=== PATIENT | male | born 1955 | race Caucasian/White ===

== ENCOUNTER → 2024-01-28 07:23 | Outpatient (REF) | payer MEDICARE, OTHER, SELFPAY ==
[2024-01-28 08:26] LABS: % Basophils 0.9 % (0-2); % Eosinophils 2.1 % (0-6); % Immature Granulocytes 0.3 % (0-0.5); % Monocytes 8.4 % (1.7-9.3); % Neutrophils 60.3 % (42.2-75.2); Absolute Basophils 0.1 10^3/uL (0-0.2); Absolute Eosinophils 0.1 10^3/uL (0-0.7); Absolute Lymphocytes 1.6 10^3/uL (1.2-3.4); Absolute Monocytes 0.5 10^3/uL (0.1-0.6); Absolute Neutrophils 3.5 10^3/uL (1.4-6.5); Hematocrit 38.7 % (39.0-52.0); Hemoglobin 12.9 g/dL (13.0-18.0); Mean Corp Hgb Conc. 33.3 g/dL (33.0-37.0); Mean Corpuscular Hgb 29.8 pg (27.0-31.0); Mean Corpuscular Volume 89.4 fL (80.0-94.0); Mean Platelet Volume 10.5 fL (7.4-10.4); Nucleated Red Blood Cells % 0 % (-); Platelet Count 273 10^3/uL (130-400); Red Blood Cell Count 4.33 10^6/uL (4.70-6.10); Red Cell Dist. Width 14.2 % (11.5-14.5); White Blood Cell Count 5.7 10^3/uL (4.8-10.8)
[2024-01-28 08:55] LABS: Urine Protein < 5 mg/dl
[2024-01-28 08:58] LABS: Microalbumin, Random Urine < 0.6 mg/dl (0.6-1.7)
[2024-01-28 09:12] LABS: ALT (SGPT) 23 U/L (0-50); AST (SGOT) 25 U/L (17-59); Albumin 4.3 g/dl (3.5-5.0); Alkaline Phosphatase 52 U/L (38-126); Blood Urea Nitrogen 26 mg/dl (9-20); Calcium 9.5 mg/dl (8.4-10.2); Carbon Dioxide 29 mmol/L (22-30); Chloride 105 mmol/L (98-107); Glucose 97 mg/dl (70-99); HDL Cholesterol 66 mg/dl; Intact PTH 77.5 pg/ml (13.6-85.8); LDL Cholesterol, Calculated 151 mg/dl; Phosphorus 3.6 mg/dl (2.5-4.5); Potassium 5.1 mmol/L (3.5-5.1); Sodium 141 mmol/L (135-145); Total Bilirubin 0.6 mg/dl (0.2-1.3); Total Cholesterol 249 mg/dl (50-199); Total Protein 6.9 g/dl (6.3-8.2); Triglyceride 163 mg/dl (10-149); Very Low Density Lipoprotein 32 mg/dl (0-30); eGFR 54.75
[2024-01-28 09:36] LABS: TSH Reflex To Free T4 3.65 uIU/ml (0.47-4.68)
== END ==
LOC: REG 07:23
PROVIDERS: ATTENDING PHYSICIAN Specialist; FAMILY PHYSICIAN Family Medicine
DX: N18.31 Chronic kidney disease, stage 3a (principal); Z00.00 Encounter for general adult medical examination without abnormal findings; Z79.899 Other long term (current) drug therapy; E78.5 Hyperlipidemia, unspecified
CPT/HCPCS: 36415; 80053; 80061; 80069; 82043; 82570; 83970; 84156; 84443; 85025

== ENCOUNTER → 2024-02-28 11:25 | Outpatient (REF) | payer MEDICARE, OTHER, SELFPAY | LOC: PAVMRI 11:25 | PROVIDERS: ATTENDING PHYSICIAN Family Medicine | DX: R20.2 Paresthesia of skin (principal); G60.8 Other hereditary and idiopathic neuropathies; G89.29 Other chronic pain; R51.9 Headache, unspecified | CPT/HCPCS: 70551; 72148 ==

== ENCOUNTER → 2024-03-13 13:29 | Outpatient (REF) | payer MEDICARE, OTHER, SELFPAY ==
[2024-03-13 14:20] LABS: Erythrocyte Sed Rate 18 mm/hour (0-20)
[2024-03-13 14:46] LABS: C-Reactive Protein < 5.00 mg/L (0.0-10.00)
[2024-03-13 15:51] LABS: Folate > 20.0 ng/ml (2.76-20); Vitamin B12 446 pg/ml (239-931)
[2024-03-14 09:09] LABS: Glycohemoglobin (HgbA1c) 5.7 % (4.0-5.6)
[2024-03-15 10:33] LABS: Lyme Antibody Screen, EIA Negative (Negative)
== END ==
LOC: REG 13:29
PROVIDERS: ATTENDING PHYSICIAN Family Medicine
DX: R20.2 Paresthesia of skin (principal); G60.8 Other hereditary and idiopathic neuropathies; Z13.1 Encounter for screening for diabetes mellitus; M25.50 Pain in unspecified joint; Z79.899 Other long term (current) drug therapy
CPT/HCPCS: 36415; 82607; 82746; 83036; 85652; 86140; 86618

== ENCOUNTER → 2024-04-03 15:23 | Outpatient (REF) | payer MEDICARE, OTHER, SELFPAY | LOC: HWRAD 15:23 | PROVIDERS: ATTENDING PHYSICIAN Otolaryngology; FAMILY PHYSICIAN Family Medicine | DX: J32.0 Chronic maxillary sinusitis (principal) | CPT/HCPCS: 70486 ==

== ENCOUNTER 2024-06-28 13:00 | Inpatient (IN) | payer MEDICARE, OTHER, SELFPAY ==
[2024-06-28] VITALS (90 sets, daily range): BP systolic 74–171; BP diastolic 37–103; BMI 28.1
[2024-06-28 08:30] LABS: % Basophils 0.4 % (0-2); % Eosinophils 0.5 % (0-6); % Immature Granulocytes 0.4 % (0-0.5); % Lymphocytes 9.9 % (20.5-51.1); % Monocytes 8.5 % (1.7-9.3); % Neutrophils 80.3 % (42.2-75.2); Absolute Eosinophils 0.1 10^3/uL (0-0.7); Absolute Lymphocytes 1.1 10^3/uL (1.2-3.4); Absolute Monocytes 0.9 10^3/uL (0.1-0.6); Absolute Neutrophils 8.5 10^3/uL (1.4-6.5); Hematocrit 37.4 % (39.0-52.0); Mean Corp Hgb Conc. 34.8 g/dL (33.0-37.0); Mean Corpuscular Hgb 29.9 pg (27.0-31.0); Mean Platelet Volume 10.4 fL (7.4-10.4); Nucleated Red Blood Cells % 0 % (-); Platelet Count 266 10^3/uL (130-400); Red Blood Cell Count 4.35 10^6/uL (4.70-6.10); Red Cell Dist. Width 14.1 % (11.5-14.5); White Blood Cell Count 10.6 10^3/uL (4.8-10.8)
[2024-06-28 08:44] LABS: ALT (SGPT) 18 U/L (0-50); AST (SGOT) 23 U/L (17-59); Albumin 4.5 g/dl (3.5-5.0); Alkaline Phosphatase 54 U/L (38-126); Blood Urea Nitrogen 24 mg/dl (9-20); Calcium 10.4 mg/dl (8.4-10.2); Carbon Dioxide 24 mmol/L (22-30); Chloride 104 mmol/L (98-107); Estimated Creatinine Clearance 53 ml/min; Glucose 145 mg/dl (70-99); Lipase 60 U/L (23-300); Potassium 4.3 mmol/L (3.5-5.1); Sodium 136 mmol/L (135-145); Total Bilirubin 0.8 mg/dl (0.2-1.3); eGFR 54.75
--- NOTE | 2024-06-28 08:46 | ED.GENMED ---
History of Present Illness
<Kay Taylor PA-C - Last Filed: 06/28/24 15:39>
General
Chief Complaint: Chest Pain
Source: patient
Exam Limitations: none
Time Seen by Provider: 06/28/24 07:48
Nursing documentation reviewed up to this point in time: agreed with
History of Present Illness
History of Present Illness:
pt is a 68 y/o M h/o HT, HLD, cardiac cath in 2020, clean
followed by dr[facility]
here with 1.5 days of neck/chest discomfort
pt says it started with him feeling dizzy c/w his previous vertigo 2 nights ago
he took a dose of meclizine which resolved it
later on he started feeling some discomfort in the front of his neck with breathing that felt strange. not a sore throat, no voice change, no pain with neck movement, no exertional symptoms but it was waxing and waning, this started around 9 pm
he was able to fall asleep, but had some symptoms at night
woke up yesterday am feeling much better
but some time throughout the day noticed the same discomfort in his upper chest with breathin and still with the neck discomfort
it was more waxing and waning as well
around 2 am he woke up to use the bathroom and felt better but at 5 am he woke up feeling worse
no nausea, vomiting, diarphoresiss, fever, chills, cough, abdominal pain, neck swelling, dizziness, vision changes, headache
takes baby asa, took one yesterday not today
Past History
<Kay Taylor PA-C - Last Filed: 06/28/24 15:39>
Past History
ED Past Medical History: HTN and Hypercholesterolemia; Negative CAD
Social History
Tobacco: Non-smoker
Alcohol: None
Drug: None
Personal:
Review of Systems
<Kay Taylor PA-C - Last Filed: 06/28/24 15:39>
Review of Systems
Allergies reviewed?: Yes
All Other Systems: Not applicable
Phy Exam
<Kay Taylor PA-C - Last Filed: 06/28/24 15:39>
Physical Exam
Physical Exam:
GENERAL: Alert , in no apparent distress, seems to be more discomfort with some movement, leaning forward, deep breathing but is not otherwise uncomfortable
EYE: pupils equal and reactive
NECK: Supple no bruits, no crepitus, well appearing, normal voice, normal swallowing
ENT: o/p clr, mmm.
CARDIAC: Regular rate and rhythm .no murmur appreciated
No chest wall tenderness
LUNGS: Clear breath sounds bilaterally, no acute respiratory distress, no wheezes/rales/rhonchi
ABDOMEN: Soft, without focal tenderness, no r/g, no cvat, normal bowel sounds
NEUROLOGICAL: Alert and oriented, no focal neuro deficits
SKIN: Warm and dry, skin intact.
MUSCULOSKELETAL: No edema, well perfused. neg aurora's sign
PSYCH: Normal and appropriate interaction.
Scores
<Kay Taylor PA-C - Last Filed: 06/28/24 15:39>
Heart Score for Chest Pain Patients
STEMI patient?: No
History: Highly Suspicious
ECG: Nonspecific Repolarization
Age: >/= 65 years
Risk Factors: 1 or 2 Risk Factors
Troponin: </= Normal Limit
Heart Score for Chest Pain Patients: 6
Heart Score Risk: 20.3% MACE over next 6 weeks
Course
<Kay Taylor PA-C - Last Filed: 06/28/24 15:39>
Orders/Labs/Results
Orders:
Orders
06/28/24 Breakfast
Cholesterol Lowering
At Your Request: Full Participation
Cholesterol Lowering: Sodium, 2 Gram
06/28/24 07:39
Electrocardiogram (*1) Urgent
Reason for Study: Chest Pain
EKG- Treatment ONCE
06/28/24 08:17
CMP [Comprehensive Metabolic Panel] Urgent
Complete Blood Count/With Diff Urgent
Erythrocyte Sed Rate Urgent
Comment: ADD ON
Lipase Urgent
TSH Reflex To Free T4 Urgent
Comment: ADD ON
Troponin I Urgent
06/28/24 08:20
CT Chest Pe Study Urgent
Comment: ALSO neck pain with breathing
Reason For Exam: tachy, chest pain, ekg changes, pleuritic
06/28/24 08:21
CR Chest Portable - 1 View Urgent
Comment:
Reason For Exam: chest pain, sob
Reason Study Needs to be Portable: Patient Unstable
06/28/24 08:22
Add On- LAB Urgent
Tests Added?: esr
06/28/24 09:37
Add On- LAB Urgent
Tests Added?: tsh,reflex t4
06/28/24 09:44
Acetaminophen [Tylenol] 650 mg PO NOW STA
06/28/24 10:00
Esmolol 2500 mg/250 ml [Brevibloc 2500 mg] 2,500 mg in 250 ml IV PER PROTOCOL
Initial dose in mcg/kg/min, then titrate:: 50
Titrate to keep:: HR 50 - 60 bpm
Titrate by mcg/kg/min:: 25-50 mcg/kg/min
Frequency of titrations (minutes):: 5
Maximum dose in mcg/kg/min:: 300
Begin to taper infusion when:: Remained at goal for 4hrs
Taper by mcg/kg/min:: 25-50 mcg/kg/min
Frequency of taper (minutes) if patient maintains goal:: 30
Taper to off?: Yes
If infusion off & no longer maintaining goal:: Contact Provider
06/28/24 10:06
Morphine Sulfate 2 mg IV NOW STA
06/28/24 10:25
Type+Screen Urgent
06/28/24 10:27
CT Chest/abd/pelvis Angio W/wo Stat
Comment:
Reason For Exam: cta aortic gated chest/abd/pelvis; identify dissec
06/28/24 10:28
0.9% Sodium Chloride 1000 ml [Nss] 1,000 ml IV BOLUS
06/28/24 10:29
Esmolol [Brevibloc] 45 mg Syringe [Syringe Non-Pump] 0 ml IV NOW
06/28/24 10:32
Esmolol [Brevibloc] 45 mg Syringe [Syringe Non-Pump] 0 ml IV NOW
06/28/24 11:00
Esmolol 2500 mg/250 ml [Brevibloc 2500 mg] 2,500 mg in 250 ml IV PER PROTOCOL
06/28/24 11:14
HYDROmorphone [Dilaudid] 0.5 mg IV NOW STA
06/28/24 11:28
Echo 2D MMode Color/Doppler Urgent
Reason for Study: chest pain, aortic abnormality (possible dissection, ulcer)
06/28/24 12:32
Admit/Transfer Patient As Directed
Co-Sign Provider:
Level of Care: Inpatient admission
Assign to:: ICU
Physician / Group: orestes
Diagnosis: chest pain
Reason for Hospitalization: chest pain
Expected length of stay greater than two midnights?: Yes
ELOS- Estimated Length of Stay in days: 3
I certify the patient meets the requirements for IP care: Yes
PRN Pain Medication Management As Directed
May give lesser potent ordered pain med per pt: Yes
preference::
Protocol:: Medication orders for pain may be administered in a
manner that supports deferring to patient preference
when the pt is:
- Requesting an ordered lesser potent pain medication.
Least to most potent pain medications are defined
as: acetaminophen < NSAID < tramadol < opioids
(morphine, oxycodone, hydromorphone).
- Requesting a lesser dose of the same medication IF
ORDERED.
- Requesting a less intrusive route of administration
if both routes are prescribed by the provider (PO <
IV).
06/28/24 12:34
Code Status As Directed
Resuscitation Status: Full Code
06/28/24 14:00
EKG [Electrocardiogram (*1)] Routine
Reason for Study: Abnormal EKG
06/28/24 14:13
Troponin I Q6H
06/28/24 14:37
Acetaminophen [Tylenol] 650 mg PO Q4HPRN PRN
Bisacodyl [Dulcolax] 10 mg RECTAL [id number] PRN
Docusate W/Senna [Senokot-S] 1 tablet PO BIDPRN PRN
Polyethylene Glycol Powder [Miralax] 17 grams PO DAILYPRN PRN
06/28/24 14:37
Activity As Directed
Activity Level: As Tolerated
Pneumatic Compression Sleeves As Directed
Type: Knee high
Vital Signs As Directed
Frequency: Per unit guidelines
DX Deep Vein Thrombosis Video Routine
06/28/24 20:00
EKG [Electrocardiogram (*1)] Routine
Reason for Study: Abnormal EKG
Troponin I Q6H
06/29/24 06:00
Basic Metabolic Panel IN AM
Cardiovascular Evaluation IN AM
Complete Blood Count/No Diff IN AM
06/29/24 08:00
Aspirin Low Dose EC [Aspir Low (Enteric Coated)] 81 mg PO DAILY
06/30/24 06:00
Basic Metabolic Panel IN AM
Complete Blood Count/No Diff IN AM
07/01/24 06:00
Basic Metabolic Panel IN AM
Complete Blood Count/No Diff IN AM
07/02/24 06:00
Basic Metabolic Panel IN AM
Complete Blood Count/No Diff IN AM
07/03/24 06:00
Basic Metabolic Panel IN AM
Complete Blood Count/No Diff IN AM
Abnormal Lab Results
06/28/24
08:17
RBC 4.35 L 10^6/uL
(4.70-6.10)
Hct 37.4 L %
(39.0-52.0)
Absolute Neuts (auto) 8.5 H 10^3/uL
(1.4-6.5)
Absolute Lymphs (auto) 1.1 L 10^3/uL
(1.2-3.4)
Absolute Monos (auto) 0.9 H 10^3/uL
(0.1-0.6)
Neutrophils % 80.3 H %
(42.2-75.2)
Lymphocytes % 9.9 L %
(20.5-51.1)
ESR 22 H mm/hour
(0-20)
BUN 24 H mg/dl
(9-20)
Creatinine 1.4 H mg/dL
(0.7-1.3)
Glucose 145 H mg/dl
(70-99)
Calcium 10.4 H mg/dl
(8.4-10.2)
06/28/24 08:17
06/28/24 08:17
Vital Signs
Initial and Last Documented VS:
Initial Vital Signs
Temp Pulse Resp BP Pulse Ox
98.7 F 109 18 170/98 99
06/28/24 07:45 06/28/24 07:45 06/28/24 07:45 06/28/24 07:45 06/28/24 07:45
Last Documented Vital Signs
Temp Pulse Resp BP Pulse Ox
99.3 F 82 21 139/81 96
06/28/24 15:13 06/28/24 15:00 06/28/24 15:00 06/28/24 15:00 06/28/24 15:00
<Toni Case MD - Last Filed: 06/28/24 10:37>
Orders/Labs/Results
Orders:
Orders
06/28/24 Breakfast
Cholesterol Lowering
At Your Request: Full Participation
Cholesterol Lowering: Sodium, 2 Gram
06/28/24 07:39
Electrocardiogram (*1) Urgent
Reason for Study: Chest Pain
EKG- Treatment ONCE
06/28/24 08:17
CMP [Comprehensive Metabolic Panel] Urgent
Complete Blood Count/With Diff Urgent
Erythrocyte Sed Rate Urgent
Comment: ADD ON
Lipase Urgent
TSH Reflex To Free T4 Urgent
Comment: ADD ON
Troponin I Urgent
06/28/24 08:20
CT Chest Pe Study Urgent
Comment: ALSO neck pain with breathing
Reason For Exam: tachy, chest pain, ekg changes, pleuritic
06/28/24 08:21
CR Chest Portable - 1 View Urgent
Comment:
Reason For Exam: chest pain, sob
Reason Study Needs to be Portable: Patient Unstable
06/28/24 08:22
Add On- LAB Urgent
Tests Added?: esr
06/28/24 09:37
Add On- LAB Urgent
Tests Added?: tsh,reflex t4
06/28/24 09:44
Acetaminophen [Tylenol] 650 mg PO NOW STA
06/28/24 10:00
Esmolol 2500 mg/250 ml [Brevibloc 2500 mg] 2,500 mg in 250 ml IV PER PROTOCOL
Initial dose in mcg/kg/min, then titrate:: 50
Titrate to keep:: HR 50 - 60 bpm
Titrate by mcg/kg/min:: 25-50 mcg/kg/min
Frequency of titrations (minutes):: 5
Maximum dose in mcg/kg/min:: 300
Begin to taper infusion when:: Remained at goal for 4hrs
Taper by mcg/kg/min:: 25-50 mcg/kg/min
Frequency of taper (minutes) if patient maintains goal:: 30
Taper to off?: Yes
If infusion off & no longer maintaining goal:: Contact Provider
06/28/24 10:06
Morphine Sulfate 2 mg IV NOW STA
06/28/24 10:25
Type+Screen Urgent
06/28/24 10:27
CT Chest/abd/pelvis Angio W/wo Stat
Comment:
Reason For Exam: cta aortic gated chest/abd/pelvis; identify dissec
06/28/24 10:28
0.9% Sodium Chloride 1000 ml [Nss] 1,000 ml IV BOLUS
06/28/24 10:29
Esmolol [Brevibloc] 45 mg Syringe [Syringe Non-Pump] 0 ml IV NOW
06/28/24 10:32
Esmolol [Brevibloc] 45 mg Syringe [Syringe Non-Pump] 0 ml IV NOW
06/28/24 11:00
Esmolol 2500 mg/250 ml [Brevibloc 2500 mg] 2,500 mg in 250 ml IV PER PROTOCOL
06/28/24 11:14
HYDROmorphone [Dilaudid] 0.5 mg IV NOW STA
06/28/24 11:28
Echo 2D MMode Color/Doppler Urgent
Reason for Study: chest pain, aortic abnormality (possible dissection, ulcer)
06/28/24 12:32
Admit/Transfer Patient As Directed
Co-Sign Provider:
Level of Care: Inpatient admission
Assign to:: ICU
Physician / Group: orestes
Diagnosis: chest pain
Reason for Hospitalization: chest pain
Expected length of stay greater than two midnights?: Yes
ELOS- Estimated Length of Stay in days: 3
I certify the patient meets the requirements for IP care: Yes
PRN Pain Medication Management As Directed
May give lesser potent ordered pain med per pt: Yes
preference::
Protocol:: Medication orders for pain may be administered in a
manner that supports deferring to patient preference
when the pt is:
- Requesting an ordered lesser potent pain medication.
Least to most potent pain medications are defined
as: acetaminophen < NSAID < tramadol < opioids
(morphine, oxycodone, hydromorphone).
- Requesting a lesser dose of the same medication IF
ORDERED.
- Requesting a less intrusive route of administration
if both routes are prescribed by the provider (PO <
IV).
06/28/24 12:34
Code Status As Directed
Resuscitation Status: Full Code
06/28/24 14:00
EKG [Electrocardiogram (*1)] Routine
Reason for Study: Abnormal EKG
06/28/24 14:13
Troponin I Q6H
06/28/24 14:37
Acetaminophen [Tylenol] 650 mg PO Q4HPRN PRN
Bisacodyl [Dulcolax] 10 mg RECTAL [id number] PRN
Docusate W/Senna [Senokot-S] 1 tablet PO BIDPRN PRN
Polyethylene Glycol Powder [Miralax] 17 grams PO DAILYPRN PRN
06/28/24 14:37
Activity As Directed
Activity Level: As Tolerated
Pneumatic Compression Sleeves As Directed
Type: Knee high
Vital Signs As Directed
Frequency: Per unit guidelines
DX Deep Vein Thrombosis Video Routine
06/28/24 20:00
EKG [Electrocardiogram (*1)] Routine
Reason for Study: Abnormal EKG
Troponin I Q6H
06/29/24 06:00
Basic Metabolic Panel IN AM
Cardiovascular Evaluation IN AM
Complete Blood Count/No Diff IN AM
06/29/24 08:00
Aspirin Low Dose EC [Aspir Low (Enteric Coated)] 81 mg PO DAILY
06/30/24 06:00
Basic Metabolic Panel IN AM
Complete Blood Count/No Diff IN AM
07/01/24 06:00
Basic Metabolic Panel IN AM
Complete Blood Count/No Diff IN AM
07/02/24 06:00
Basic Metabolic Panel IN AM
Complete Blood Count/No Diff IN AM
07/03/24 06:00
Basic Metabolic Panel IN AM
Complete Blood Count/No Diff IN AM
Abnormal Lab Results
06/28/24
08:17
RBC 4.35 L 10^6/uL
(4.70-6.10)
Hct 37.4 L %
(39.0-52.0)
Absolute Neuts (auto) 8.5 H 10^3/uL
(1.4-6.5)
Absolute Lymphs (auto) 1.1 L 10^3/uL
(1.2-3.4)
Absolute Monos (auto) 0.9 H 10^3/uL
(0.1-0.6)
Neutrophils % 80.3 H %
(42.2-75.2)
Lymphocytes % 9.9 L %
(20.5-51.1)
ESR 22 H mm/hour
(0-20)
BUN 24 H mg/dl
(9-20)
Creatinine 1.4 H mg/dL
(0.7-1.3)
Glucose 145 H mg/dl
(70-99)
Calcium 10.4 H mg/dl
(8.4-10.2)
06/28/24 08:17
06/28/24 08:17
Vital Signs
Initial and Last Documented VS:
Initial Vital Signs
Temp Pulse Resp BP Pulse Ox
98.7 F 109 18 170/98 99
06/28/24 07:45 06/28/24 07:45 06/28/24 07:45 06/28/24 07:45 06/28/24 07:45
Last Documented Vital Signs
Temp Pulse Resp BP Pulse Ox
99.3 F 82 21 139/81 96
06/28/24 15:13 06/28/24 15:00 06/28/24 15:00 06/28/24 15:00 06/28/24 15:00
<Kay Taylor PA-C - Last Filed: 06/28/24 15:39>
MDM/Problems Addressed
Differential Diagnosis Includes:
PE, aortic dissection, aortic aneurysm, pneumonia, perforation of the esophagus, pneumothorax, acs
MDM/Problems Addressed:
68-year-old h/o htn, hld
2 days intermittent neck/ches tpain worse with breathing and changing position
bp elevated on arrival but doesn't look in distress
ekg is slightly abnormal, t wave v2 and minimal st elevation 0.5 mm III
i contacted dr. osorio for old ekg who was able to provide one that looks different
pt seen by ed attending
and we decidedon PE study, given pleuritic nature of pain with tachycardia
pe study shows a focal abnormality aortic arch concerning for ulceration or dissection
we spoke with dr ferreira who recommended a CTA dissection study and esmolol drip for bp management
pt returned from CT with more pain,treated with dilaudid
esmolol drip on, needing to bump up to 300 max
pt in no distress, but slightly anxious
cta shows the same sublte abnormality which apparently is not within the arch but inferior to the subclvaian which is vascular surgery territory
i spoke with dr paiz who will see him, agreed with BP mangement for now
dr. paiz and hanna both reviewed the cts and did not bleieve they saw a dissection
cardiology also consulted and they ordered echo
pt admitted and signed out to hospitalist for further w/u
<Kay Taylor PA-C - Last Filed: 06/28/24 15:39>
*Critical Care Note
Total Time (30-74mins, 75-104mins- exclusive of procedures): Not Applicable (60 min - discussion with multiple specialists, bp management; )
ED Attending Note
<Kay Taylor PA-C - Last Filed: 06/28/24 15:39>
-
Portions of this chart may have been created with voice recognition software.� Occasional wrong word or��sound alike� substitutions may have occurred due to the inherent limitations of voice recognition software.
<Toni Case MD - Last Filed: 06/28/24 10:37>
ED Attending Note
Patient seen and examined by attending physician: Yes
I performed the substantive portion of visit, reviewed & personally made and approve the management plan that is documented in note by myself or JERONIMO.: Yes
ED Attending Note:
60-year-old male presents with about 36 hours of a fullness in his anterior neck and upper chest. Waxes and wanes. Somewhat positional and worse with sitting forward. At times worse with swallowing. No radiation of the back. No searing pain.
Mildly worse with breathing. No history of same.
On exam patient is nontoxic in no distress. Lungs are clear and equal. Heart regular rate and rhythm no murmur. Abdomen soft and nontender. He has no crepitus. Is warm and dry. Perfusing well.
EKG has new inferior changes. However troponin is negative. We have discussed with cardiology who will evaluate. CT chest to evaluate for pulmonary emboli or other vascular emergency.
Immediately after report from rads.... Patient updated on CT findings. CT surgery contacted. Esmolol drip started. They asked for a CT angio of the chest abdomen and pelvis.
Discharge Plan
Departure
Patient Disposition: Admit
Date of Disposition: 06/28/24
Time of Disposition: 11:53
Admit to: IMU
Presentation/result/management discussed w/ accepting MD/DO: Hospitalist
Condition: Fair
Covid-19: Not Applicable
Discharge Problem:
Nonspecific ST-T wave electrocardiographic changes, Chest pain
Interventions
Interventions:
*Risk Screen - Suicide Last Done: 06/28/24 15:15
*General Assessment Last Done: 06/28/24 07:48
*Neglect/Abuse Screening Last Done: 06/28/24 07:48
ED- Fall Risk Assessment Last Done: 06/28/24 08:09
*Nursing Disposition Last Done: 06/28/24 14:43
ED- Cardiac Assessment Last Done: 06/28/24 08:09
Discharge Date and Time
Discharge Date/Time: 06/28/24 14:30
[2024-06-28 08:55] LABS: Troponin I < 0.012 ng/ml
[2024-06-28] MEDS: MORPHINE SULFATE 2 MG IV (10:11)
[2024-06-28] MEDS: BREVIBLOC 2500 MG 250 IV ×3 (10:12→16:25)
[2024-06-28 10:20] LABS: Erythrocyte Sed Rate 22 mm/hour (0-20)
--- NOTE | 2024-06-28 10:20 | CON.CAR ---
Addendum entered and electronically signed by Vito Adams MD 06/28/24 14:05:
I saw and examined the patient.
The [employer] COM[employer]OR's note was reviewed and I agree with the note.
Comment: 68 y/o male with hypertension, dyslipidemia (statin intolerance), CKD 3A, and non-occlusive CAD who is here for evaluation of chest discomfort since Tuesday at 9 PM. There was initial concern for possible Type A dissection, however,
confirmed not the case with CT surgery. Medical management with BP and HR control.
- Esmolol gtt and Dilt gtt for now
- HR goal < 60 BP goal < 120 systolic
Original Note:
Consultation
Consultation Request
Date/Time Consultation Requested: 06/28/24 0951
Date/Time Consultation Performed: 06/28/24 1030
Requesting Provider: Kay FLORES
Performing Provider: Evelina MARCOS for Dr. Adams
Reason for Consultation: chest pain, abnormal EKG, HTN
Medical History
-
Chief Complaint: chest discomfort
History of Present Illness:
68 y/o male with hypertension, dyslipidemia (statin intolerance), CKD 3A, and non-occlusive CAD who is here for evaluation of chest discomfort since Tuesday at 9 PM. He first noticed neck pressure that went to his jaw and ears, but then he noticed
the discomfort in his epigastric region. It is worse with inspiration. It was better when he was sitting in tripod position. He is in no distress at the time of my assessment. He is present with his . Trop is normal. EKG with diffuse ST
elevations.
Past Medical History
Past Medical History: CAD (non-trends), HTN and Hypercholesterolemia
Social History
Tobacco: Former Smoker (many years ago)
Family History
Family History: Reviewed & Not Pertinent
Allergies / Home Medications
Allergy/AdvReac Type Severity Reaction Status Date / Time
Urajbmb-[id number]-[id number] Reductase Allergy Intermediate Pharmacy Verified 06/28/24 07:45
Inhibitor to Review
[Yaezwze-Mqo-Lum Reductase
Inhibitor]
ANTIHISTAMINES Allergy Severe Pharmacy Uncoded 08/03/21 08:23
to Review
�Medication �Instructions �Recorded �Confirmed �Type
valsartan 80 mg tablet 80 mg PO DAILY Blood Pressure 08/03/21 06/28/24 History
aspirin 81 mg tablet,delayed 81 mg PO DAILY Blood Clot 06/28/24 06/28/24 History
release Prevention/Tx
msaedvxd-zz-xrnzp 300 mcg-K 60 1 tab PO DAILY Supplement 06/28/24 06/28/24 History
mcg-lycop 600 mcg-lutein 300 mcg
tablet (Centrum Silver Men)
omega 2-hxt-ylg-fish oil 1,000 mg 2 cap PO DAILY Supplement 06/28/24 06/28/24 History
(120 mg-180 mg) capsule (Fish Oil)
Review of Systems
-
History Source: Patient
All other systems: Negative unless noted (symptoms as noted in HPI)
Cardiac: Chest Pain
Physical Exam
Vital Signs
Temp Pulse Resp BP Pulse Ox
98.7 F 88 20 169/88 99
06/28/24 07:45 06/28/24 10:12 06/28/24 10:00 06/28/24 10:12 06/28/24 10:00
Lab Results
06/28/24 08:17
06/28/24 08:17
Troponin I < 0.012 ng/ml 06/28/24 08:17
Physical Exam
General: Well Developed, Well Nourished and No Apparent Distress
HEENT: Normocephalic and Anicteric
Respiratory: Clear and Non Labored Respirations
Cardiac: Regular Rhythm
Skin: Warm and Dry
Neuro: AO x 3
Psych: Calm
Impression / Plan
-
Chest discomfort:
-s/p morphine- monitor response
-trop normal- will trend
-EKG with diffuse ST elevations, will trend
-CT chest: abnormal focal inflammatory process along the proximal aortic arch with very small eccentric outpouching of contrast enhancement. There is surrounding inflammatory stranding and mild wall thickening of the aorta at this level. Exact
etiology of this is indeterminate at CT. Early changes of intramural hematoma, ulceration, or dissection cannot be excluded. CT surgery consulted and I discussed with ROBERT Coulter- plan is for repeat imaging now to get further data on this, then come
up with plan. In meantime, BP/HR management. He has been started on esmolol drip- continue this with goal SBP 100-120 mmhg and HR goal <60. This medication requires intensive monitoring.
-obtain echo now
HTN:
-above goal
-on ARB as OP
-monitor on esmolol drip
HLD:
-statin intolerant
CKD3A:
-seems to be stable here. Monitor closely.
Data Reviewed
-
EKG: Tracing Personally Visualized and interpreted (ST with diffuse ST elevations)
Radiology: Report Reviewed by me (No active pulmonary process.)
CT Scan: Report Reviewed by me ( abnormal focal inflammatory process along the proximal aortic arch with very small eccentric outpouching of contrast enhancement. There is surrounding inflammatory stranding and mild wall thickening of the aorta at
this level. Exact etiology of this is indeterminate at CT...) and Other (Early changes of intramural hematoma, ulceration, or dissection cannot be excluded.)
Labs: Labs Reviewed by me
[2024-06-28] MEDS: BREVIBLOC 4.5 MG IV (10:46)
[2024-06-28] MEDS: NSS 1000 IV ×2 (10:48→18:04)
[2024-06-28] MEDS: DILAUDID 0.5 MG IV ×2 (11:17→15:42)
--- NOTE | 2024-06-28 12:06 | HPS.HSE ---
Addendum entered and electronically signed by Ronald Mckinley MD 06/28/24 13:35:
I saw and examined the patient.
The OPENER TENDER or PA's note was reviewed and I agree with the note.
Comment: 68-year-old male with past medical history of hypertension, nonocclusive CAD, CKD, hyperlipidemia came to the hospital with midsternal chest pain radiating to the neck and jaw along with upper back. Per patient his symptoms started Tuesday
night. In the ER EKG with diffuse ST elevations. CT scan of the chest with abnormal focal inflammatory process along the proximal aortic arch concerning for possible early changes of intramural hematoma, ulceration or dissection. Currently on
esmolol drip. Admit to ICU. Vascular, cardiology, CT surgery evaluation. Check echo. Trend trops
General: Well Developed, Well Nourished and No Apparent Distress
HEENT: NormoCephalic, Moist mucous membranes and Atraumatic
Respiratory: Clear
Cardiac: S1/S2 and Regular Rhythm; No Murmur or Rub
GI: Soft, Non Tender, Non Distended and Normal Bowel Sounds
Rectal: Deferred by Provider
Musculoskeletal: No Clubbing, No Cyanosis and No Edema
Skin: No Rash
Neuro: AO x 3 and Nonfocal/grossly intact
Psych: Calm
I spent a total of 76 minutes with the patient or on the floor. More than 50% of this time involved counseling and coordination of care.
Original Note:
Family Physician
-
Family Physician: Sukhjinder Cohen Jr.
Chief Complaint
-
neck, upper chest pain
History of Present Illness
68 year old with PMH for HTN, HLD presented to us with neck pain started on Tuesday morning and it came down to mid sternum radiating to her neck, upper back. today the pain got worse and it is worse with deep breath. better when leaning forwards.
denied fever, chills, chest pain, sob.denied SCHMITZ, dizzy or syncopal episode. denied abdominal pain,n,v,d.denied dysuria or hematuria.
normal trop in ER. noted in hypertensive in ER. initiated on esmolol drip. admitting for further management.
Medical History
Past Medical History
Past Medical History: Reports Other
Additional Past Medical History:
Hypertension
Dyslipidemia
Chronic kidney disease
Nonocclusive coronary artery disease
Lyme disease
Peripheral neuropathy
Ischemic nephropathy with a renal sclerosis
Past Surgical History: Reports Other
Additional Past Surgical History:
Cholecystectomy
Right cataract with lens implant
Right vitrectomy
Mohs surgery on nose basal cell
Social History
Tobacco: Non-smoker
Alcohol: Occasional
Drug: None
Personal:
Living: With Family
Employment: Retired
Family History
Family History: Not pertinent
Allergies / Home Medications
Allergies reflects when Allergies were last updated in [facility].
Home Medications with original date entered in [facility] [employer]
Allergy/Medication List:
Allergies
Allergy/AdvReac Type Severity Reaction Status Date / Time
Oxkhiga-IPW-OeZ Reductase Allergy Intermediate Pharmacy Verified 06/28/24 07:45
Inhibitor to Review
[Fxcjqsb-Hdu-Woo Reductase
Inhibitor]
ANTIHISTAMINES Allergy Severe Pharmacy Uncoded 08/03/21 08:23
to Review
Home Medications
valsartan 80 mg tablet 80 mg PO DAILY Blood Pressure 08/03/21
aspirin 81 mg tablet,delayed release 81 mg PO DAILY Blood Clot Prevention/Tx 06/28/24
fcmzfujv-vn-iohne 300 mcg-K 60 mcg-lycop 600 mcg-lutein 300 mcg tablet (Centrum Silver Men) 1 tab PO DAILY Supplement 06/28/24
omega 1-kru-cag-fish oil 1,000 mg (120 mg-180 mg) capsule (Fish Oil) 2 cap PO DAILY Supplement 06/28/24
Review of Systems
-
Constitutional: Reports No Symptoms
EENT: Reports No Symptoms
Respiratory: Reports No Symptoms
Cardiac: Reports Chest Pain
Abdomen/GI: Reports No Symptoms
: Reports No Symptoms
Musculoskeletal: Reports No Symptoms
Skin: Reports No Symptoms
Neurological: Reports No Symptoms
Endocrine: Reports No Symptoms
Hematologic/Lymphatic: Reports No Symptoms
Psych: Reports No Symptoms
Physical Exam
Vital Signs
Vital Signs
Temp Pulse Resp BP Pulse Ox
98.7 F 75 22 135/87 98
06/28/24 07:45 06/28/24 11:30 06/28/24 11:30 06/28/24 11:30 06/28/24 11:30
Physical Exam
General: Well Developed, Well Nourished and No Apparent Distress
HEENT: NormoCephalic, Moist mucous membranes and Atraumatic
Respiratory: Clear
Cardiac: S1/S2 and Regular Rhythm; No Murmur or Rub
GI: Soft, Non Tender, Non Distended and Normal Bowel Sounds; No Organomegaly
Rectal: Deferred by Provider
Musculoskeletal: No Clubbing, No Cyanosis and No Edema
Skin: No Rash
Neuro: AO x 3 and Nonfocal/grossly intact
Psych: Calm
Laboratory Results
-
06/28/24 08:17
06/28/24 08:17
Laboratory Results
Total Bilirubin 0.8 mg/dl (0.2-1.3) 06/28/24 08:17
AST 23 U/L (17-59) 06/28/24 08:17
ALT 18 U/L (0-50) 06/28/24 08:17
Alkaline Phosphatase 54 U/L (38-126) 06/28/24 08:17
Troponin I < 0.012 ng/ml 06/28/24 08:17
Lipase 60 U/L (23-300) 06/28/24 08:17
Data Reviewed
-
Diagnostic Radiology: Report Reviewed by me
CT Scan: Report Reviewed by me
Lab Data: Labs Reviewed by me
Impression/Plan
-
#mid sternum, neck/upper back pain possible hemopericardium
-Troponin 0.012
-Continue to trend troponin
-CTA chest abdomen pelvis with impression of Very small focus of abnormally increased attenuation along the aortic arch immediately above the level of interest on the noncontrast exam, suspicious for very small volume intramural hemorrhage.
Following contrast administration, no significant change of the findings along the aortic arch as compared with the prior examination. There is small increased attenuation pericardial fluid suggesting possible hemopericardium. May be slightly
increased as compared with the prior examination, somewhat limited by artifacts on the prior study. Together, these findings remain suspicious for some form of acute aortic syndrome along the lateral arch. Limited intimal tear is a differential
consideration.
2. As above, there is contrast extending to the margin of the left ventricular apex suggesting thinning at this level. There is no diverticulum and there is no adjacent extravasation or inflammatory change.
-Chest x-ray with no active pulmonary process
-Chest CT abnormal focal inflammatory process along the proximal aortic arch with very small eccentric outpouching of contrast enhancement. There is surrounding inflammatory stranding and mild wall thickening of the aorta at this level. Exact
etiology of this is indeterminate at CT. Early changes of intramural hematoma, ulceration, or dissection cannot be excluded. This location is not typical for ductus diverticulum.
2. No pulmonary embolism is identified.
-EKG with sinus tachycardia, possible left atrial enlargement, ST elevation, consider early repolarization, pericarditis, or injury
-Obtain echo
-CT surgeon consulted
-cardiology consulted
# Hypertension emergency
-Started on esmolol drip
-hold valsartan
#HLD:
-statin intolerant
# Chronic kidney disease stage IIIA
-Creatinine 1.4
-Continue to monitor
#DVT prophylaxis
-SCD
#CODE status
-full code
--- NOTE | 2024-06-28 13:35 | W.PN.UPDATE ---
Update Note
Progress Note Update
For billing purposes only
--- NOTE | 2024-06-28 13:39 | EDRN ---
Corey sent out to admitting HEALTH INFORMATION CLERK about pt currently being on the max dose of Esmolol which requires the start of nicardapine. After consulting with cardiology, the HEALTH INFORMATION CLERK states she will order Cardizem drip while continuing with Esmolol.
--- NOTE | 2024-06-28 13:41 | W.PN.UPDATE ---
Update Note
Progress Note Update
Alerted by primary team that BP 140/78 and HR 83 at present while maxed on esmolol drip. These are above goal for current situation. Discussed with Dr. Adams and will add low dose diltiazem drip (2.5 mg/hr).
--- NOTE | 2024-06-28 13:47 | CONSULT.CT ---
Consultation
-
Date/Time Consultation Requested: 06/28/24 1348
Date/Time Consultation Performed: 06/28/24 1134
Requesting Provider: Manpreet PHILLIPS
Performing Provider: Sherrell Amin MD
Reason for Consultation: Aortic dissection
Patient History
Physicians
Family Physician: Vicki
Outpatient Poultry Slaughterer: N/A
Inpatient Poultry Slaughterer: Bryan
History of Present Illness
68-year-old male with past medical history of hypertension, hyperlipidemia presented after having pressure in the neck/throat area for 2 days after eating a cupcake. The pain would worsen and radiate down to the midsternal area. He states that is
associated with some shortness of breathe. While in the emergency room, they preformed a CT PE study which revealed a possible dissection. Ct surgery was consulted. The imaging was reviewed by Ct surgeons and a repeat CTA C/A/P was recommended. The
repeat scan was completed and reviewed and it was decided that no surgical intervention was needed but to get vascular surgery involved. Esmolol infusion was recommended for aggressive blood pressure control.
Past Medical History
Past Medical History: HTN, Hypercholesterolemia and Other
Chronic kidney disease
Nonocclusive coronary artery disease
Lyme disease
Peripheral neuropathy
Ischemic nephropathy with a renal sclerosis
Past Surgical History
Past Surgical History: Other
Cholecystectomy
Right cataract with lens implant
Right vitrectomy
Mohs surgery on nose basal cell
Family History
Mother: N/A
Father: N/A
Family Medical History: Aneurysm (denies)
Social History
Alcohol: Occasional
Drug: None
Tobacco: Non-Smoker
Personal:
Living: With Spouse
Employment: Employed
Allergies
Allergy/AdvReac Type Severity Reaction Status Date / Time
Hezomlg-RFE-OfA Reductase Allergy Intermediate Pharmacy Verified 06/28/24 07:45
Inhibitor to Review
[Epwpdnk-Ryv-Gki Reductase
Inhibitor]
ANTIHISTAMINES Allergy Severe Pharmacy Uncoded 08/03/21 08:23
to Review
Home Medications
�Medication �Instructions �Recorded �Confirmed �Type
valsartan 80 mg tablet 80 mg PO DAILY Blood Pressure 08/03/21 06/28/24 History
aspirin 81 mg tablet,delayed 81 mg PO DAILY Blood Clot 06/28/24 06/28/24 History
release Prevention/Tx
dkvxzlmi-xq-gnccy 300 mcg-K 60 1 tab PO DAILY Supplement 06/28/24 06/28/24 History
mcg-lycop 600 mcg-lutein 300 mcg
tablet (Centrum Silver Men)
omega 3-poj-opr-fish oil 1,000 mg 2 cap PO DAILY Supplement 06/28/24 06/28/24 History
(120 mg-180 mg) capsule (Fish Oil)
Review of Systems
-
History Source: Patient
HEENT: Reports Other (neck pain)
Respiratory: Reports SOB
Cardiac: Reports No Symptoms
Abdomen/GI: Reports Reflux and Indigestion
: Reports No Symptoms
Musculoskeletal: Reports No Symptoms
Skin: Reports No Symptoms
Neurological: Reports No Symptoms
Vascular: Reports No Symptoms
Physical Exam
Vital Signs
Temp 98.7 F 06/28/24 07:45
Temp route: Oral 06/28/24 07:45
Pulse 90 06/28/24 12:35
Rhythm: Normal sinus rhythm 06/28/24 11:54
Resp Rate 22 06/28/24 12:35
Blood pressure 128/75 06/28/24 12:35
MAP (cuff-Prabhjot Monitor) 91 06/28/24 12:35
SaO2 98 06/28/24 12:35
Oxygen Mode of Delivery Room air 06/28/24 08:09
Acceptable pain level during hospitalization? 0 06/28/24 07:45
Can the patient verbally communicate their pain? Yes 06/28/24 11:17
Pain scale ratin 06/28/24 11:17
Actual Weight 90.1 kg 06/28/24 07:59
Body Mass Index (BMI) 0.0 06/28/24 08:09
Labs
06/28/24 08:17
06/28/24 08:17
Troponin I < 0.012 ng/ml 06/28/24 08:17
Exam
General: Well Developed, Well Nourished and No Apparent Distress
HEENT: Normocephalic
Respiratory: Clear
Cardiac: S1/S2
GI: Soft
Rectal: Deferred by Provider
Skin: Warm
Neuro: AO x 3
Lymph: No Lymphadenopathy
Psych: Calm
Assessment / Plan
-
68-year-old male with past medical history listed above presented to [place] emergency room after having neck pain after eating a cupcake for [address] surgery was consulted after a CAT scan was suspicious for possible dissection.
#Aortic abnormality
- repeat CT in the morning
- Continue esmolol for aggressive BP control. Goal SBP <120
- monitor Cr post 2 dose of dye
--- NOTE | 2024-06-28 14:07 | CON.INTV ---
Consultation
Consultation Request
Date/Time Consultation Requested: 06/28/2024 - 1307
Date/Time Consultation Performed: 06/28/2024 - 1331
Requesting Provider: PRITI Hoffman
Performing Provider: Andry Fry MD
Reason for Consultation: Suspected aortic dissection
Medical History
-
Chief Complaint: Chest pain
History of Present Illness:
68-year-old male non-smoker with a past medical history of nonobstructive CAD, CKD, history of Lyme disease, chronic LBP, hypertension/hyperlipidemia who presents with chest pain X 1 day. Pain described as starting in his throat and then radiated
to his chest. He told the hospitalist that he had chest pain that radiated to his neck and jaw as well as upper back. Initial vitals in the ER showed he was tachycardic to 109 bpm, breathing at 18 breaths/min, BP 170/98, saturating 98% on room air
and afebrile to 98.7 �F. Labs showed Hb 13, WBC WNL at 10.6, creatinine 1.4, troponin negative x 2 at <0.012, lipase 60, TSH 2.46. CXR showed no acute cardiopulmonary process, and CT of the chest showed an abnormal focal inflammatory process along
the proximal aortic arch with a very small eccentric outpouching of contrast enhancement with surrounding inflammatory stranding, concerning for intramural hematoma versus ulceration versus dissection. No acute PE was seen. CT surgery was
consulted and esmolol drip was started. A CTA dissection study was obtained showing showing tiny focus of abnormally increased attenuation along the lateral aortic arch, with increased attenuation in the pericardial fluid suspicious for
hemopericardium. Vascular surgery also consulted with close observation recommended with repeat CT scan in 48 hours. Patient also given Dilaudid, morphine and IVF with NS 0.9% x 1L. Patient admitted to the ICU for further care, and critical care
services consulted for additional management/recommendations.
When I saw the patient he was in bed, in no acute distress, BP 79/49 with heart rate 82 and the labetalol + Cardizem drips were stopped, as esmolol previously was not slowing down heart rate enough, however he was now hypotensive. He denies
lightheadedness, shortness of breath, abdominal pain, fevers or chills. He still has central chest pain and also seems to radiate to his neck. , Savanna, at bedside, and all questions were answered. The patient and his have been going
through a lot of stress lately as the patient's 's mother has just a few weeks ago.
PMHx: Hypertension, hyperlipidemia, chronic low back pain, history of Lyme disease, history of prostatitis, history of vertigo, nonobstructive CAD, CKD, statin intolerance
PSHx: Cholecystectomy, right cataract surgery with lens implant, right vitrectomy, cardiac catheterization, Mohs surgery on nose due to basal cell carcinoma
Past Medical History
Past Medical History: Other (Above as per HPI)
Past Surgical History: Other (Above as per HPI)
Social History
Tobacco: Non-smoker
Alcohol: Occasional (1-7 alcoholic beverages per week)
Personal:
Living: With Family ()
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
Family History
Family History: CAD (Mother), Cancer (Mother: Gastric/melanoma), Hypertension (Father) and Other (Father: Dementia, hypercholesterolemia, renal failure with stroke and end-of-life cancer; maternal grandfather: Cerebral hemorrhage in his 50s)
Allergies / Home Medications
Allergies
Allergy/AdvReac Type Severity Reaction Status Date / Time
Dkssbsn-LPZ-AsC Reductase Allergy Intermediate Pharmacy Verified 06/28/24 07:45
Inhibitor to Review
[Mparyoi-Onk-Ywp Reductase
Inhibitor]
ANTIHISTAMINES Allergy Severe Pharmacy Uncoded 08/03/21 08:23
to Review
Home Medications
�Medication �Instructions �Recorded �Confirmed �Last Taken �Type
valsartan 80 mg tablet 80 mg PO DAILY Blood Pressure 08/03/21 06/28/24 06/28/24 History
aspirin 81 mg tablet,delayed 81 mg PO DAILY Blood Clot 06/28/24 06/28/24 06/27/24 History
release Prevention/Tx
elweizvf-ae-blrwj 300 mcg-K 60 1 tab PO DAILY Supplement 06/28/24 06/28/24 06/27/24 History
mcg-lycop 600 mcg-lutein 300 mcg
tablet (Centrum Silver Men)
omega 8-tat-yrn-fish oil 1,000 mg 2 cap PO DAILY Supplement 06/28/24 06/28/24 06/27/24 History
(120 mg-180 mg) capsule (Fish Oil)
Review of Systems
-
History Source: Patient
All other systems: Negative unless noted
Vitals / Labs / Diagnostic Testing
Vital Signs
Temp Pulse Resp BP Pulse Ox
98.7 F 90 22 128/75 98
06/28/24 07:45 06/28/24 12:35 06/28/24 12:35 06/28/24 12:35 06/28/24 12:35
Lab Data
06/28/24 08:17
06/28/24 08:17
Diagnostic Testing:
Physical Exam
-
HEENT: Normocephalic and Anicteric
Cardiovascular: S1/S2 and Peripheral Edema (Negative)
Respiratory: Wheeze (Negative), Rales (Negative), Rhonchi (Negative) and Non-Labored Respirations
GI: Soft, Non Distended, Non Tender and Normal Bowel Sounds
Neurology: AO x 3 and Tremors (Negative)
Skin: Warm and Dry
General: Respiratory Distress (Negative), Comfortable, Chills (Negative) and Sweats (Negative)
Assessment
-
Assessment: 68-year-old male non-smoker with a past medical history of nonobstructive CAD, CKD, history of Lyme disease, chronic LBP, hypertension/hyperlipidemia who presents with chest pain X 1 day. Pain described as starting in his throat and
then radiated to his chest. He told the hospitalist that he had chest pain that radiated to his neck and jaw as well as upper back. Initial vitals in the ER showed he was tachycardic to 109 bpm, breathing at 18 breaths/min, BP 170/98, saturating
98% on room air and afebrile to 98.7 �F. Labs showed Hb 13, WBC WNL at 10.6, creatinine 1.4, troponin negative x 2 at <0.012, lipase 60, TSH 2.46. CXR showed no acute cardiopulmonary process, and CT of the chest showed an abnormal focal
inflammatory process along the proximal aortic arch with a very small eccentric outpouching of contrast enhancement with surrounding inflammatory stranding, concerning for intramural hematoma versus ulceration versus dissection. No acute PE was
seen. CT surgery was consulted and esmolol drip was started. A CTA dissection study was obtained showing showing tiny focus of abnormally increased attenuation along the lateral aortic arch, with increased attenuation in the pericardial fluid
suspicious for hemopericardium. Vascular surgery also consulted with close observation recommended with repeat CT scan in 48 hours. Patient also given Dilaudid, morphine and IVF with NS 0.9% x 1L. Patient admitted to the ICU for further care, and
critical care services consulted for additional management/recommendations.
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
Impression:
#Chest pain -negative troponin x 2
#Abnormal CTA chest concerning for aortic arch intramural hemorrhage versus ulceration versus dissection
#Abnormal CTA chest with increased attenuation in pericardial fluid suggestive of possible hemopericardium
#CKD (baseline Cr 1.4-1.6)
#History of Lyme disease
#Hypertension
#Hyperlipidemia
Plan:
- Continue IV beta-annette with goal HR <60, SBP <120 --> given that patient's BP + HR were not at goal with esmolol, labetalol drip started however this led to hypotension so all drips are currently off
- Restart esmolol once patient's BP has improved with SBP 100�120, with goal HR <60-65; if HR not at goal then consider Cardizem gtt to have better negative chronotropic effect
- Would recommend starting Cardene gtt once BP has improved to keep SBP <120
- TTE from today also shows echodensity in the aorta measuring 0.8 cm x 1.8 cm, concerning for intramural hematoma, ulceration versus dissection
- No concern for pericardial effusion on today's echo
- Cardiology on board and recommendations appreciated
- Eventually he will be transition to PO beta-blockers + possibly need adjustment with his anti-hypertensives
- He takes valsartan at home and considering his risk of contrast-induced SHASHA, would hold this for now
- Vascular surgery + cardiothoracic surgery consulted with recommendations appreciated
- No immediate surgical intervention recommended at this time by either vascular surgery or CT surgery
- Continue with close observation, maintain HR + SBP as above, replete electrolytes with K >4, Mg >2, and repeat CTA chest in 48 hours (AM of 06/30/2024)
- Start IVF with NS @ 125cc/hr given high contrast load over the last 24 hours to avoid CI-SHASHA
- Maintain SpO2 >90-94%
- Maintain MAP>65
- Replete electrolytes with K>4, Mg>2
- Maintain euglycemia with goal BG 140-180
- prn nebulized bronchodilators
- Incentive spirometer encouraged
- DVT ppx
Critical care statement: A total of 42 minutes of critical care time was provided for this patient today. This includes management of unstable vital signs, evaluation of the patient at bedside, reviewing the patient's pertinent medical records
including radiographs, microbiology, laboratory evaluations, and discussion with primary team, consultants, pharmacy, nutrition, physical therapy, case management, charge nurse, critical care nursing, and respiratory therapy.
Data:
CTA chest, abdomen, pelvis with/without contrast 06/28/2024:
1. Very small focus of abnormally increased attenuation along the aortic arch immediately above the level of interest on the noncontrast exam, suspicious for very small volume intramural hemorrhage. Following contrast administration, no significant
change of the findings along the aortic arch as compared with the prior examination. There is small increased attenuation pericardial fluid suggesting possible hemopericardium. May be slightly increased as compared with the prior examination,
somewhat limited by artifacts on the prior study. Together, these findings remain suspicious for some form of acute aortic syndrome along the lateral arch. Limited intimal tear is a differential consideration.
2. There is contrast extending to the margin of the left ventricular apex suggesting thinning at this level. There is no diverticulum and there is no adjacent extravasation or inflammatory change.
CXR 06/28/2024: No active pulmonary process.
[2024-06-28] MEDS: CARDIZEM 125 IV (14:16)
[2024-06-28 14:40] LABS: INR 1.09; PT 14.2 Sec (11.4-14.6)
[2024-06-28 14:41] LABS: APTT 35.2 Sec (23.4-35.0)
[2024-06-28 14:53] LABS: TSH Reflex To Free T4 2.46 uIU/ml (0.47-4.68)
[2024-06-28 14:54] LABS: Troponin I < 0.012 ng/ml
--- NOTE | 2024-06-28 15:12 | W.PN.UPDATE ---
Update Note
Progress Note Update
68-year-old male asked to evaluate for potential abnormal finding in the aorta on CT scan imaging. Patient notes 'odd sensation' in his throat/neck starting Tuesday 2 days ago. This then progressed yesterday to involving the chest. It is an odd
sensation/pain. Not definitively constant. No pain in the back. It emanates from the neck/lower neck to the superior chest area. No abdominal pain. No lower extremity pain. No prior issue of any aortic issues that he is aware of. No family
history of aortic issues. Patient with remote history of tobacco use, history of hypertension. Otherwise no cardiovascular risk factors.
On exam/ He is awake and alert, in no acute distress. Head is normocephalic and atraumatic. Eyes are anicteric. Neck is soft without jugular venous distention. 2+ carotid pulsation bilaterally. 2+ upper extremity radial pulse palpable
bilaterally. Abdomen is soft, nondistended, nontender. Lower extremity with 2+ femoral, popliteal, pedal pulses palpable bilaterally.
CT angiogram reviewed. The report notes 'very small focus of abnormally increased attenuation along the aortic arch immediately above the level of interest on the noncontrast exam, suspicious for very small volume intramural hemorrhage.' In
addition it goes on to say 'there is a small increased attenuation pericardial fluid suggesting possible hemopericardium.'
To my interpretation I can see some of the fluid/hemopericardium that there referring to, but I am under appreciating an aortic contour abnormality or a potential intramural hemorrhage. It is a very subtle finding if it is there.
Plan/ Potential aortic arch intramural hemorrhage finding on CT scan. Under impressive to my interpretation. I discussed with CT surgeon Dr. Anders as well who was consulted and reviewed the CT scan and he is in agreement. Would recommend close
observation and repeat CT scan in 48 hours. With involvement of hemopericardium, and based on location may require CT surgical repair if required. But no current indication. Would manage for now like type B aortic dissection with BP titration
(SBP <120, HR <60).
--- NOTE | 2024-06-28 15:52 | PTCARENOTE ---
patient received from ED, assessments, gtt's per work list. titration of cardizem per orders. max dose esmolol and cardizem. textile technical officer updated by tiger text. medicated with dilaudid per prn order for neck and chest pain. spouse at bedside. call
quiñones in reach. oriented to room and procedures. orders pending for medication adjustments
--- NOTE | 2024-06-28 16:08 | W.PN.UPDATE ---
Update Note
Progress Note Update
Despite maxed esmolol and diltiazem drips, patient BP and HR still not at goal. Discussed with Dr. Adams, pharmacist Nathalia, and nurse Pily and we will stop esmolol drip and start labetalol drip.
[2024-06-28] MEDS: TRANDATE 80 MG IV (16:27)
[2024-06-28] MEDS: TRANDATE 10 MG IV (16:27)
[2024-06-28] MEDS: TRANDATE 20 MG IV (16:52)
--- NOTE | 2024-06-28 17:06 | CON.VAS ---
Consultation
Consultation Request
Date/Time Consultation Performed: 06/28/2024 1500
Requesting Provider: Hospitalist
Performing Provider: Noelle Benton NP-C for Richmond Guidry MD
Reason for Consultation: abnormal finding in the aorta on CT scan imaging.
Medical History
-
Chief Complaint: abnormal finding in the aorta on CT scan imaging
History of Present Illness:
This is a 68-year-old male patient with significant past medical history of CAD, hypertension, hypercholesterolemia, chronic low back pain, Lyme disease, prostatitis, vertigo, CKD, and statin intolerance and vascular surgery team is asked to
evaluate for potential abnormal finding in the aorta on CT scan imaging. Patient notes 'odd sensation' in his throat/neck starting Tuesday 2 days ago. This then progressed yesterday to involving the chest. It is an odd sensation/pain. Not
definitively constant. No pain in the back. It emanates from the neck/lower neck to the superior chest area. No abdominal pain. No lower extremity pain. No prior issue of any aortic issues that he is aware of. No family history of aortic
issues. Patient with remote history of tobacco use, history of hypertension. Otherwise no cardiovascular risk factors.
Past Medical History
Past Medical History: CAD, HTN, Hypercholesterolemia and Other (Chronic low back pain, Lyme disease, prostatitis, vertigo, CKD statin intolerance)
Past Surgical History: Cholecystectomy and Other (right cataract surgery with lens implant, right vitrectomy, cardiac catheterization, Mohs surgery on nose due to basal cell carcinoma)
Social History
Tobacco: Non-Smoker
Alcohol: Occasional
Personal:
Living: With Family
Employment: Retired
Allergies / Home Medications
Allergy/AdvReac Type Severity Reaction Status Date / Time
Udaqqms-OIG-SxV Reductase Allergy Intermediate Pharmacy Verified 06/28/24 07:45
Inhibitor to Review
[Jmwojao-Zob-Klx Reductase
Inhibitor]
ANTIHISTAMINES Allergy Severe Pharmacy Uncoded 08/03/21 08:23
to Review
�Medication �Instructions �Recorded �Confirmed �Type
valsartan 80 mg tablet 80 mg PO DAILY Blood Pressure 08/03/21 06/28/24 History
aspirin 81 mg tablet,delayed 81 mg PO DAILY Blood Clot 06/28/24 06/28/24 History
release Prevention/Tx
xybjofxl-jz-poxxc 300 mcg-K 60 1 tab PO DAILY Supplement 06/28/24 06/28/24 History
mcg-lycop 600 mcg-lutein 300 mcg
tablet (Centrum Silver Men)
omega 5-kxf-zur-fish oil 1,000 mg 2 cap PO DAILY Supplement 06/28/24 06/28/24 History
(120 mg-180 mg) capsule (Fish Oil)
Review of Systems
-
History Source: Patient
Constitutional: Reports No Symptoms
EENT: Reports Other (Pain described as starting in his throat and then radiated to his chest)
Respiratory: Reports No Symptoms
Cardiac: Reports Chest Pain
Abdomen/GI: Reports No Symptoms
: Reports No Symptoms
Musculoskeletal: Reports No Symptoms
Skin: Reports No Symptoms
Neurological: Reports No Symptoms
Endocrine: Reports No Symptoms
Physical Exam
Vital Signs
Temp Pulse Resp BP Pulse Ox
99.3 F 83 21 92/60 96
06/28/24 15:13 06/28/24 16:52 06/28/24 15:00 06/28/24 16:52 06/28/24 15:00
Lab Results
06/28/24 08:17
06/28/24 08:17
Troponin I < 0.012 ng/ml 06/28/24 14:13
Physical Exam
General: No Apparent Distress
HEENT: Normocephalic, Anicteric and Atraumatic
Respiratory: Non Labored Respirations
Cardiac: Negative JVD
GI: Soft, Non Tender and Non Distended
Musculoskeletal: No Edema and Other ( 2+ upper extremity radial pulse palpable bilaterally)
Skin: Warm
Neuro: AO x 3
Pulses: Bilateral Femoral: +2, Bilateral Popliteal: +2, Bilateral Dorsalis Pedis: +2 and Bilateral Posterior Tibial: +2
Assessment / Plan
-
Assessment: 68 year old with potential aortic arch intramural hemorrhage finding on CT scan
Plan:
Reviewed CT angiogram with Dr. Richmond Guidry, CT states'very small focus of abnormally increased attenuation along the aortic arch immediately above the level of interest on the noncontrast exam, suspicious for very small volume intramural hemorrhage.'
In addition it goes on to say 'there is a small increased attenuation pericardial fluid suggesting possible hemopericardium.' Dr. Guidry notes that he can see some of the fluid/hemopericardium that there referring to, but he is under appreciating an
aortic contour abnormality or a potential intramural hemorrhage. It is a very subtle finding if it is there.
I would recommend close observation and repeat CT scan in 48 hours. With involvement of hemopericardium, and based on location may require CT surgical repair if required. But no current indication. Would manage for now like type B aortic
dissection with BP titration (SBP <120, HR <60)
I performed this shared service with the attending. I evaluated the patient [id number] and have entered clinical documentation as shown in the encounter note. I performed the following component(s): history and physical exam. Note that medical
decision making is not final until attested by vascular attending.
--- NOTE | 2024-06-28 17:32 | PTCARENOTE ---
all gtts off per MD due to hypotension. new orders received.
[2024-06-28] MEDS: TYLENOL 650 MG PO (20:01)
[2024-06-28 20:43] LABS: Troponin I < 0.012 ng/ml
[2024-06-29] VITALS (93 sets, daily range): BP systolic 87–129; BP diastolic 55–82; BMI 28.8
--- NOTE | 2024-06-29 00:28 | PTCARENOTE ---
systems reviewed, pt pain managed with Tylenol per order, pt SBP remained above 105 3x over 45 min and Esmolol was restarted at 50 mcg, pt able to make needs known, call quiñones within reach, otherwise see flowcharts.
[2024-06-29] MEDS: NSS 1000 IV (02:00)
[2024-06-29] MEDS: BREVIBLOC 2500 MG 250 IV ×10 (03:14→22:52)
[2024-06-29] MEDS: CARDENE 200 IV (03:31)
--- NOTE | 2024-06-29 03:55 | PTCARENOTE ---
pt maxed on esmolol at 300 mcg, REPRODUCTION SPECIALIST notified and verified with cardiology that Cardene should be started for a SBP 90-110, HR remains in the 70's-80's
--- NOTE | 2024-06-29 04:27 | W.PN.UPDATE ---
Update Note
Progress Note Update
Discussed heart rate and SBP parameters with Dr. Adams, scientist. Patient currently maxed on esmolol with HR 80s sustained and nicardipine gtt which SBP is meeting goal between SBP 90-110. Patient had hypotension on Cardizem and Labetalol
gtts. Continue with current plan of esmolol and nicardipine gtts per cardiology.
[2024-06-29] MEDS: TYLENOL 650 MG PO (05:28)
[2024-06-29 05:34] LABS: Hematocrit 31.1 % (39.0-52.0); Hemoglobin 10.7 g/dL (13.0-18.0); Mean Corp Hgb Conc. 34.4 g/dL (33.0-37.0); Mean Corpuscular Hgb 29.9 pg (27.0-31.0); Mean Corpuscular Volume 86.9 fL (80.0-94.0); Mean Platelet Volume 9.9 fL (7.4-10.4); Platelet Count 194 10^3/uL (130-400); Red Blood Cell Count 3.58 10^6/uL (4.70-6.10); Red Cell Dist. Width 14.2 % (11.5-14.5); White Blood Cell Count 9.9 10^3/uL (4.8-10.8)
[2024-06-29 06:08] LABS: Blood Urea Nitrogen 17 mg/dl (9-20); Calcium 8.4 mg/dl (8.4-10.2); Carbon Dioxide 22 mmol/L (22-30); Chloride 107 mmol/L (98-107); Estimated Creatinine Clearance 61 ml/min; Glucose 108 mg/dl (70-99); HDL Cholesterol 60 mg/dl; LDL Cholesterol, Calculated 116 mg/dl; Potassium 4.3 mmol/L (3.5-5.1); Sodium 134 mmol/L (135-145); Total Cholesterol 201 mg/dl (50-199); Triglyceride 128 mg/dl (10-149); Very Low Density Lipoprotein 25 mg/dl (0-30); eGFR > 60.00
[2024-06-29] MEDS: ASPIR LOW (ENTERIC COATED) 81 MG PO (07:51)
[2024-06-29] MEDS: SENOKOT-S 1 TABLET PO (08:03)
--- NOTE | 2024-06-29 08:09 | W.PN.INTV ---
Today's Communication / Plan
Recommendations
Esmolol gtt +/- Cardene gtt depending on BP stability
Goal HR<60-65, goal SBP<120
Bedrest for now
High dose ASA + colchicine per cardiology to tx pericarditis
Recheck CTA chest today to re-assess suspected type B Ao dissection vs ulceration vs hematoma
Continue ICU level of care; can likely downgrade tomorrow to tele if all specialties are in agreement and he can be safely weaned off all cardiac drips
Assessment
-
Assessment: 68-year-old male non-smoker with a past medical history of nonobstructive CAD, CKD, history of Lyme disease, chronic LBP, hypertension/hyperlipidemia who presents with chest pain X 1 day. Pain described as starting in his throat and
then radiated to his chest. He told the hospitalist that he had chest pain that radiated to his neck and jaw as well as upper back. Initial vitals in the ER showed he was tachycardic to 109 bpm, breathing at 18 breaths/min, BP 170/98, saturating
98% on room air and afebrile to 98.7 �F. Labs showed Hb 13, WBC WNL at 10.6, creatinine 1.4, troponin negative x 2 at <0.012, lipase 60, TSH 2.46. CXR showed no acute cardiopulmonary process, and CT of the chest showed an abnormal focal
inflammatory process along the proximal aortic arch with a very small eccentric outpouching of contrast enhancement with surrounding inflammatory stranding, concerning for intramural hematoma versus ulceration versus dissection. No acute PE was
seen. CT surgery was consulted and esmolol drip was started. A CTA dissection study was obtained showing showing tiny focus of abnormally increased attenuation along the lateral aortic arch, with increased attenuation in the pericardial fluid
suspicious for hemopericardium. Vascular surgery also consulted with close observation recommended with repeat CT scan in 48 hours. Patient also given Dilaudid, morphine and IVF with NS 0.9% x 1L. Patient admitted to the ICU for further care, and
critical care services consulted for additional management/recommendations.
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
Impression:
#Chest pain -negative troponin x 2 - likely due to pericarditis (lateral ST elevations and ID-depressions seen on EKG from this AM)
#Abnormal CTA chest concerning for aortic arch intramural hemorrhage versus ulceration versus dissection
#Abnormal CTA chest with increased attenuation in pericardial fluid suggestive of possible hemopericardium
#CKD (baseline Cr 1.2-1.4)
#History of Lyme disease
#Hypertension
#Hyperlipidemia
Plan:
- Continue IV beta-annette with goal HR <60, SBP <120 --> given that patient's BP + HR were not at goal with esmolol, labetalol drip started however this led to hypotension so all drips are currently off
- Patient seems to be most stable with lowest HR and SBP with esmolol and cardene gtts. If HR not at goal then consider Cardizem gtt to have better negative chronotropic effect assuming MAP>65 but SBP<120mmHg
- TTE from 06/28/2024 shows echodensity in the aorta measuring 0.8 cm x 1.8 cm, concerning for intramural hematoma, ulceration versus dissection
- No concern for pericardial tamponade on echo
- Cardiology on board and recommendations appreciated
- There is concern for pericarditis:
- Continue high-dose ASA at 875mg TID x 2 weeks then taper from there
- Colchicine x 2 months
- Eventually he will be transitioned to PO beta-blockers + possibly need adjustment with his anti-hypertensives
- He takes valsartan at home and considering his risk of contrast-induced SHASHA, would hold this for now
- Vascular surgery + cardiothoracic surgery consulted with recommendations appreciated
- No immediate surgical intervention recommended at this time by either vascular surgery or CT surgery
- Continue with close observation, maintain HR + SBP as above, replete electrolytes with K >4, Mg >2, and repeat CTA chest today (requested by CT-surgery)
- Continue to monitor Cr given high contrast load over the last 24-48 hours with risk of CI-SHASHA
- Maintain SpO2 >90-94%
- Maintain MAP>65
- Replete electrolytes with K>4, Mg>2
- Maintain euglycemia with goal BG 140-180
- prn nebulized bronchodilators
- Incentive spirometer encouraged
- DVT ppx
Critical care statement: A total of 38 minutes of critical care time was provided for this patient today. This includes management of unstable vital signs, evaluation of the patient at bedside, reviewing the patient's pertinent medical records
including radiographs, microbiology, laboratory evaluations, and discussion with primary team, consultants, pharmacy, nutrition, physical therapy, case management, charge nurse, critical care nursing, and respiratory therapy.
Data:
CTA chest, abdomen, pelvis with/without contrast 06/28/2024:
1. Very small focus of abnormally increased attenuation along the aortic arch immediately above the level of interest on the noncontrast exam, suspicious for very small volume intramural hemorrhage. Following contrast administration, no significant
change of the findings along the aortic arch as compared with the prior examination. There is small increased attenuation pericardial fluid suggesting possible hemopericardium. May be slightly increased as compared with the prior examination,
somewhat limited by artifacts on the prior study. Together, these findings remain suspicious for some form of acute aortic syndrome along the lateral arch. Limited intimal tear is a differential consideration.
2. There is contrast extending to the margin of the left ventricular apex suggesting thinning at this level. There is no diverticulum and there is no adjacent extravasation or inflammatory change.
CXR 06/28/2024: No active pulmonary process.
Subjective Dataa
Subjective Data
Date of Service:
Date of Service: June 29, 2024
Chief Complaint: Toddler Caregiver Follow Up
Subjective:
Patient seen and evaluated this morning. Currently on Esmolol gtt at 200mcg/kg/min, and off cardene as SBP 97, DBP 64. RR 19, SpO2 96% on room air. No acute events reported from overnight. He endorses CP with coughing - started on treatment for
pericarditis by cardiology. at bedside and all questions were answered. Patient denies SOB, headache, abdominal pain, nausea, fevers or chills.
Review of Systems
General: Other (Negative unless mentioned above)
Objective Data
Data Reviewed
Vital Signs / I&O / Oxygen:
Vital Signs
Temp Pulse Resp BP Pulse Ox
98.4 F 81 19 95/62 94
06/29/24 08:00 06/29/24 08:00 06/29/24 08:00 06/29/24 08:00 06/29/24 08:00
Intake and Output
06/28/24 06/29/24 06/30/24
06:59 06:59 06:59
Intake Total 3524.3 / 3832.3 856 / 856
Output Total 1150 / 1150
Balance 2374.3 / 2682.3 856 / 856
SaO2 94
Physical Exam
General: Respiratory Distress (Negative), Comfortable, Chills (Negative) and Sweats (Negative)
HEENT: Normocephalic and Anicteric
Cardiovascular: S1-S2 and Peripheral Edema (Negative)
Respiratory: Wheeze (Negative), Crackles (Negative), Rhonchi (Negative) and Non-Labored Respirations
GI: Soft, Non Distended, Non Tender and Normal Bowel Sounds
Neurology: AO x 3 and Tremors (Negative)
Skin: Warm, Dry and Jaundice (Negative)
Labs/Micro/Reports
Lab Data
06/29/24 05:17
06/29/24 05:17
Laboratory Results
06/28/24
14:13
PT 14.2
INR 1.09
APTT 35.2 H
--- NOTE | 2024-06-29 08:10 | PTCARENOTE ---
report received, assessments per work list.patient denies pain, states pain is a 1-2 when taking a deep breath. monitor nsr. breath sounds diminished. abdomen round, soft. hypoactive bowel sounds. reviewed constipation and effects of narcotics on
bowels. patient administered senna per prn order per his request. esmolol, cardene per work list. resting heart rate 70's, 80's with activity. call quiñones in reach
--- NOTE | 2024-06-29 09:29 | CM ---
CM following re: discharge planning.
Reviewed pt's chart, met with pt.
Pt is a 68 year old male, admitted with primary dx of Chest pain and past medical history of nonobstructive CAD, CKD, history of Lyme disease, chronic LBP, hypertension/hyperlipidemia
Pt reports he lives with spouse in a 2SH, 4 steps to enter, has 2 supportive sons. 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 No DME, VN or SNF history.
PCP: Sukhjinder Cohen
Pharmacy: [facility]
D/C plan; home with anticipated no needs. Spouse to transport at discharge.
CM will follow with discharge plan updates as hospitalization progresses
--- NOTE | 2024-06-29 09:58 | W.PN.CD ---
Today's Communication / Plan
-
High dose aspirin and colchicine for acute pericarditis
Repeat imaging per vascualr and CT sx tomorrow
Impression / Plan
-
68 y/o male with hypertension, dyslipidemia (statin intolerance), CKD 3A, and non-occlusive CAD who is here for evaluation of chest discomfort since Tuesday at 9 PM. He has potential aortic arch intramural hemorrhage on CTA and CTS and Vascular sx
agree to treat like Type B dissection. Additionally, he has signs and symptoms of acute pericarditis with ECG changes and pleuritic CP.
aortic abnormality:
-Repeat imaging tomorrow
-trop normal- will trend
-EKG with diffuse ST elevations, will trend
-CT chest: abnormal focal inflammatory process along the proximal aortic arch with very small eccentric outpouching of contrast enhancement. There is surrounding inflammatory stranding and mild wall thickening of the aorta at this level. Exact
etiology of this is indeterminate at CT. Early changes of intramural hematoma, ulceration, or dissection cannot be excluded. CT surgery consulted and I discussed with ROBERT Coulter- plan is for repeat imaging now to get further data on this, then come
up with plan. In meantime, BP/HR management. He has been started on esmolol drip- continue this with goal SBP 100-120 mmhg and HR goal <60. This medication requires intensive monitoring.
-Echo as below
- cont esmolol and cardene
- did not tolerate labetalol caused significant hypotension, will cont esmolol with cardene gtt
Acute pericarditis
- Colchicine 0.6 mg bid
- Aspirin 975 mg tid for 2 weeks then decrease by 250 every week until back to baby aspirin
- PPI for gi protection
HTN:
-above goal
-on ARB as OP
-monitor on esmolol drip
HLD:
-statin intolerant
CKD3A:
-seems to be stable here. Monitor closely.
Physical Exam
Vital Signs/Labs
Vital Signs
Temp Pulse Resp BP Pulse Ox
98.4 F 81 19 88/59 94
06/29/24 08:00 06/29/24 08:00 06/29/24 08:00 06/29/24 09:22 06/29/24 08:00
06/28/24 06/29/24 06/30/24
06:59 06:59 06:59
Actual Weight 200 lb 6.403 oz
06/29/24 05:17
06/29/24 05:17
PT 14.2 Sec (11.4-14.6) 06/28/24 14:13
INR 1.09 06/28/24 14:13
APTT 35.2 Sec (23.4-35.0) H 06/28/24 14:13
Triglycerides 128 mg/dl (10-149) 06/29/24 05:17
LDL Cholesterol, Calc 116 mg/dl 06/29/24 05:17
VLDL Cholesterol, Calc 25 mg/dl (0-30) 06/29/24 05:17
HDL Cholesterol 60 mg/dl 06/29/24 05:17
TSH Cancelled 06/28/24 08:17
LAB Results
06/28/24 06/28/24 06/28/24
08:17 14:13 20:13
Troponin I < 0.012 < 0.012 < 0.012
Physical Exam
Constitutional: No acute distress
EENT: Anicteric
Cardiovascular: Rhythm & rate is regular and Pedal edema is absent
Respiratory: Respiratory effort normal and Lungs clear to auscul.
GI: Soft
Neuro/Psych: AO x 3
Data Reviewed
-
Date of Service: June 29, 2024
EKG: Tracing Personally Visualized and interpreted (sr concern for acute pericarditis )
Echo: Report Reviewed by me
Labs: Labs Reviewed by me
[2024-06-29] MEDS: PROTONIX 20 MG PO (11:38)
--- NOTE | 2024-06-29 11:39 | W.PN.HOSP.TC ---
Today's Communication/Plan
-
Monitor vital signs
see plan
Continue with esmolol, Cardene drip
Add PPI
On aspirin and colchicine
CTA tomorrow
Assessment / Plan
Assessment / Plan
General: Well Developed, Well Nourished and No Apparent Distress
HEENT: NormoCephalic, Moist mucous membranes and Atraumatic
Respiratory: Clear
Cardiac: S1/S2 and Regular Rhythm; No Murmur or Rub
GI: Soft, Non Tender, Non Distended and Normal Bowel Sounds
Musculoskeletal: No Edema
Neuro: AO x 3 and Nonfocal/grossly intact
Psych: Calm
mid sternum, neck/upper back pain could be 2/2 Acute aortic dissection or Acute pericarditis
Admission EKG with ST elevations; trop neg
echo noted
cardiology started high-dose aspirin and colchicine
Vascular surgery and CT surgery following. Plan for another CTA 06/30. Per vascular surgery manage for now like type B aortic dissection with BP titration (SBP <120, HR <60)
Continue with Cardene and esmolol drip
CT chest neg for PE
did not tolerate labetalol caused significant hypotension
added PPI
Hypertension emergency
-Started on esmolol drip
-hold valsartan
Hyponatremia
Monitor
#HLD:
-statin intolerant
# Chronic kidney disease stage IIIA
-Continue to monitor
#DVT prophylaxis
-SCD
#CODE status
-full code
I spent a total of 52 minutes with the patient or on the floor. More than 50% of this time involved counseling and coordination of care.
Anticipated Discharge: > 48 hours
Subjective/Interval History
-
Date of Service: June 29, 2024
Denies nausea
Objective Data
-
Labs:
Laboratory Results
06/29/24
05:17
WBC 9.9
Hgb 10.7 L
Hct 31.1 L
Plt Count 194 D
Sodium 134 L
Potassium 4.3
Chloride 107
Carbon Dioxide 22
BUN 17
Creatinine 1.2
Glucose 108 H
Calcium 8.4 D
Vital Signs:
Vital Signs
Temp Pulse Resp BP Pulse Ox
98.1 F 71 15 97/64 94
06/29/24 11:06 06/29/24 11:00 06/29/24 11:00 06/29/24 11:00 06/29/24 11:06
I&O
06/28/24 06/29/24 06/30/24
06:59 06:59 06:59
Intake Total 3524.3 / 3832.3 1686
Output Total 1150 / 1150
Balance 2374.3 / 2682.3 1686
[2024-06-29] MEDS: COLCHICINE 0.6 MG PO ×2 (11:53→20:02)
--- NOTE | 2024-06-29 11:57 | PTCARENOTE ---
patient reassessed, denies pain, voiding adequate amounts linwood yellow urine in urinal. esmolol per work list
--- NOTE | 2024-06-29 12:15 | W.PN.VS ---
Today's Communication / Plan
-
*Continue close monitoring
*Ensure appropriate management of HR<60 & BP<100-120 goals
*Repeat CT Imaging for further evaluation and characterization of any structural changes, rule-out progression,
and possible confirmation of its stabilization
Assessment/Plan
-
ASSESSMENT:
68 yo Male with no notable PMHx/PSHx, besides remote history of tobacco use and HTN who presented to the ED yesterday with complains of an odd sensation in his throat/neck that radiated to the superior chest area and subsequently progressed to
involved his whole chest and was found to have an abnormal/non-specific radiologic finding in the wall of his aortic arch on upon further CT scan imaging at admission.
PLAN:
Continue close monitoring
Ensure appropriate management of HR<60 & BP<100-[address] Imaging for further evaluation and characterization of any structural changes, rule-out progression,
and possible confirmation of its stabilization
-
Total Time Spent with Patient (in minutes): ~15 Min
Subjective Data
-
Date of Service: June 29, 2024
Pt was seen and evaluated at bedside this morning with attending physician.
No acute events O/N
Hemodynamically
Had No complains this morning
Denies any N/V, Chest/Back Pain or UE or LE Poikilothermia, numbness or paleness
Objective Data
-
Vital Signs
Temp Pulse Resp BP Pulse Ox
36.7 C 79 20 119/77 96
06/29/24 11:06 06/29/24 11:45 06/29/24 11:45 06/29/24 11:45 06/29/24 11:45
Intake and Output
06/28/24 06/29/24 06/30/24
06:59 06:59 06:59
Intake Total 3524.3 / 3832.3 2179 / 2179
Output Total 1150 / 1150 450 / 450
Balance 2374.3 / 2682.3 1729 / 1729
Intake:
Oral fluids 840 / 840 840 / 840
IV fluids (Total) 2684.3 / 2992.3 1339 / 1339
Nss 1,000 ml @ 125 mls/hr IV . 1500 / 1625 500 / 500
Q8H PURNIMA Rx#:[id number]
cardene 75 / 100 75 / 75
cardizem 40 / 40
esmolol 1066.8 / 1224.8 764 / 764
trandate 2.5 / 2.5
Output:
Urine, Voided 1150 / 1150 450 / 450
Lab Results
06/29/24 05:17
06/29/24 05:17
Calcium 8.4 mg/dl (8.4-10.2) D 06/29/24 05:17
Total Bilirubin 0.8 mg/dl (0.2-1.3) 06/28/24 08:17
AST 23 U/L (17-59) 06/28/24 08:17
ALT 18 U/L (0-50) 06/28/24 08:17
Alkaline Phosphatase 54 U/L (38-126) 06/28/24 08:17
Total Protein 7.0 g/dl (6.3-8.2) 06/28/24 08:17
Albumin 4.5 g/dl (3.5-5.0) 06/28/24 08:17
Physical Exam
-
VITALS:
STABLE
PE:
Comfortably sitting at bed this morning.
Hemodynamically stable.
GEN- AAOx3 / In NAD
HEENT- EOMI
MSK- Palpable UE/LE pulses + bilaterally / No paleness / No Poikilothermia
[2024-06-29 15:32] LABS: Magnesium 1.9 mg/dl (1.6-2.3); Phosphorus 3.4 mg/dl (2.5-4.5)
[2024-06-29] MEDS: ASPIRIN 975 MG PO ×2 (15:42→22:16)
--- NOTE | 2024-06-29 15:49 | PTCARENOTE ---
no changes in assessment. CT pending for today per orders. patient and spouse updated with plan of care
--- NOTE | 2024-06-29 18:33 | PTCARENOTE ---
patient taken and returned from CT scan, esmolol titration per work list
[2024-06-30] VITALS (76 sets, daily range): BP systolic 89–147; BP diastolic 46–99; BMI 29.5
[2024-06-30] MEDS: BREVIBLOC 2500 MG 250 IV ×12 (00:36→23:16)
--- NOTE | 2024-06-30 00:40 | PTCARENOTE ---
Pt Aox3, VSS, SBPSBP not with in range of ordered SBP, Cardene restarted at 2.5 for better BP control. NSR on monitor, denies overt chest/throat pain, only with deep inhalation does pt report a discomfort. Otherwise assessment unchanged, pt resting
comfortably in bed, no complaints at this time.
[2024-06-30] MEDS: CARDENE 200 IV ×2 (01:22→22:21)
[2024-06-30 04:33] LABS: Hematocrit 30.5 % (39.0-52.0); Hemoglobin 10.4 g/dL (13.0-18.0); Mean Corp Hgb Conc. 34.1 g/dL (33.0-37.0); Mean Corpuscular Hgb 29.6 pg (27.0-31.0); Mean Corpuscular Volume 86.9 fL (80.0-94.0); Mean Platelet Volume 9.9 fL (7.4-10.4); Platelet Count 197 10^3/uL (130-400); Red Blood Cell Count 3.51 10^6/uL (4.70-6.10); Red Cell Dist. Width 14.2 % (11.5-14.5); White Blood Cell Count 7.4 10^3/uL (4.8-10.8)
[2024-06-30 04:56] LABS: Blood Urea Nitrogen 14 mg/dl (9-20); Calcium 8.6 mg/dl (8.4-10.2); Carbon Dioxide 19 mmol/L (22-30); Chloride 112 mmol/L (98-107); Estimated Creatinine Clearance 61 ml/min; Glucose 92 mg/dl (70-99); Potassium 4.2 mmol/L (3.5-5.1); Sodium 138 mmol/L (135-145); eGFR > 60.00
--- NOTE | 2024-06-30 06:47 | W.PN.INTV ---
Today's Communication / Plan
Recommendations
Wean off esmolol, Cardene as able
Beta-annette, antihypertensive therapy to be started
CT imaging stable per vascular surgery
Outpatient follow-up
Possible disposition later today
Assessment
-
Assessment: 68-year-old male non-smoker with a past medical history of nonobstructive CAD, CKD, history of Lyme disease, chronic LBP, hypertension/hyperlipidemia who presents with chest pain X 1 day. Pain described as starting in his throat and
then radiated to his chest. He told the hospitalist that he had chest pain that radiated to his neck and jaw as well as upper back. Initial vitals in the ER showed he was tachycardic to 109 bpm, breathing at 18 breaths/min, BP 170/98, saturating
98% on room air and afebrile to 98.7 �F. Labs showed Hb 13, WBC WNL at 10.6, creatinine 1.4, troponin negative x 2 at <0.012, lipase 60, TSH 2.46. CXR showed no acute cardiopulmonary process, and CT of the chest showed an abnormal focal
inflammatory process along the proximal aortic arch with a very small eccentric outpouching of contrast enhancement with surrounding inflammatory stranding, concerning for intramural hematoma versus ulceration versus dissection. No acute PE was
seen. CT surgery was consulted and esmolol drip was started. A CTA dissection study was obtained showing showing tiny focus of abnormally increased attenuation along the lateral aortic arch, with increased attenuation in the pericardial fluid
suspicious for hemopericardium. Vascular surgery also consulted with close observation recommended with repeat CT scan in 48 hours. Patient also given Dilaudid, morphine and IVF with NS 0.9% x 1L. Patient admitted to the ICU for further care, and
critical care services consulted for additional management/recommendations.
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
Impression:
#Chest pain -negative troponin x 2 - likely due to pericarditis (lateral ST elevations and IN-depressions seen on EKG from this AM)
#Abnormal CTA chest concerning for aortic arch intramural hemorrhage versus ulceration versus dissection
#Abnormal CTA chest with increased attenuation in pericardial fluid suggestive of possible hemopericardium
#CKD (baseline Cr 1.2-1.4)
#History of Lyme disease
#Hypertension
#Hyperlipidemia
Plan/recommendations
At this time, patient appears to be comfortable but remains critically ill on esmolol and Cardene drip
Repeat imaging shows stability of small penetrating aortic ulcer/IMH
Patient is without symptoms
Moving forward
Continue with medical management
Transition to oral beta-annette and antihypertensive
Wean off as well, Cardene drip as able
Concern for pericarditis noted
Patient remains on aspirin high-dose, colchicine, per cardiology
Echocardiogram 06/28/2024 with normal biventricular function. Questionable intramural hematoma
No obvious pericardial effusion
Cardiology following
Protonix also continues
Outpatient follow-up with vascular, CT surgery
Disposition efforts
Reviewed with critical care nursing, primary service, vascular surgery
TCCT 31 min
Data:
CTA chest, abdomen, pelvis with/without contrast 06/28/2024:
1. Very small focus of abnormally increased attenuation along the aortic arch immediately above the level of interest on the noncontrast exam, suspicious for very small volume intramural hemorrhage. Following contrast administration, no significant
change of the findings along the aortic arch as compared with the prior examination. There is small increased attenuation pericardial fluid suggesting possible hemopericardium. May be slightly increased as compared with the prior examination,
somewhat limited by artifacts on the prior study. Together, these findings remain suspicious for some form of acute aortic syndrome along the lateral arch. Limited intimal tear is a differential consideration.
2. There is contrast extending to the margin of the left ventricular apex suggesting thinning at this level. There is no diverticulum and there is no adjacent extravasation or inflammatory change.
CXR 06/28/2024: No active pulmonary process.
Subjective Dataa
Subjective Data
Date of Service:
Date of Service: June 30, 2024
Chief Complaint: [employer] Systems Officer Follow Up
Subjective:
Patient is without complaints. Denies chest pain, shortness of breath, nausea. Remains on esmolol and Cardene drip. Denies abdominal pain
Objective Data
Data Reviewed
Vital Signs / I&O / Oxygen:
Vital Signs
Temp Pulse Resp BP Pulse Ox
97.8 F 69 22 116/66 96
06/30/24 03:19 06/30/24 05:34 06/30/24 05:15 06/30/24 05:34 06/30/24 05:15
Intake and Output
06/28/24 06/29/24 06/30/24
06:59 06:59 06:59
Intake Total 3524.3 / 3832.3 6251.5 / 6251.5
Output Total 1150 / 1150 5500 / 5500
Balance 2374.3 / 2682.3 751.5 / 751.5
SaO2 96
Physical Exam
General: Comfortable
HEENT: Normocephalic and Anicteric
Cardiovascular: S1-S2, Regular Rhythm, Murmur (n), Rub (n) and Peripheral Edema (Negative)
Respiratory: Wheeze (Negative), Crackles (Negative), Rhonchi (Negative), Non-Labored Respirations and Stridor (n)
GI: Soft, Non Distended, Non Tender and Normal Bowel Sounds
Neurology: Awake, Alert and No Motor Deficits (Moves all extremities)
Skin: Warm, Dry, Jaundice (Negative) and Rash (n)
Labs/Micro/Reports
Lab Data
06/30/24 04:17
06/30/24 04:17
--- NOTE | 2024-06-30 07:50 | W.PN.VS ---
Addendum entered and electronically signed by Richmond Guidry MD 06/30/24 08:17:
Correction/addendum to the note below. Apparently CT angiogram was completed yesterday (repeat). I was unaware that it was done again yesterday. I reviewed that CT scan. Unchanged small penetrating aortic ulcer/IMH in the distal arch just distal
to the left subclavian artery towards the posterior lateral aortic wall on axial images. No significant change. Patient without any symptoms currently. Plan follow-up in the office with 3-month follow-up CT scan imaging. Will sign off. Please
call with questions.
Original Note:
Today's Communication / Plan
-
See plan below for today 06/30/2024.
Assessment/Plan
-
ASSESSMENT AND PLAN:
Small subtle aortic contour abnormality distal arch/descending thoracic aorta (likely PACU versus intramural hematoma localized). As noted in my prior note I am not sure that this is what resulted in his symptoms. May be more related to
pericardial effusion. Regardless he is asymptomatic currently. However, as recommended prior repeat CT scan (now 48 hours). Plan for today. If CT scan stable or improved, okay for discharge and can follow-up in the vascular office in [address] scan imaging.
-
Total Time Spent with Patient (in minutes): 15
Subjective Data
-
Date of Service: June 30, 2024
Seen and examined. Patient without any significant complaints. Notes resolution of his lower neck and chest pain. No back pain. No complaints today.
Objective Data
-
Vital Signs
Temp Pulse Resp BP Pulse Ox
98.1 F 69 22 116/66 96
06/30/24 07:00 06/30/24 05:34 06/30/24 05:15 06/30/24 05:34 06/30/24 05:15
Intake and Output
06/29/24 06/30/24 07/01/24
06:59 06:59 06:59
Intake Total 3524.3 / 3832.3 6251.5 / 6251.5
Output Total 1150 / 1150 5500 / 5500
Balance 2374.3 / 2682.3 751.5 / 751.5
Intake:
Oral fluids 840 / 840 2160 / 2160
IV fluids (Total) 2684.3 / 2992.3 4091.5 / 4091.5
Nss 1,000 ml @ 125 mls/hr IV . 1500 / 1625 500 / 500
Q8H PURNIMA Rx#:[id number]
cardene 75 / 100 137.5 / 137.5
cardizem 40 / 40
esmolol 1066.8 / 1224.8 3454 / 3454
trandate 2.5 / 2.5
IV piggybacks 0 / 0
Output:
Urine, Voided 1150 / 1150 5500 / 5500
Lab Results
06/30/24 04:17
06/30/24 04:17
Calcium 8.6 mg/dl (8.4-10.2) 06/30/24 04:17
Phosphorus 3.4 mg/dl (2.5-4.5) 06/29/24 05:17
Magnesium 1.9 mg/dl (1.6-2.3) 06/29/24 05:17
Total Bilirubin 0.8 mg/dl (0.2-1.3) 06/28/24 08:17
AST 23 U/L (17-59) 06/28/24 08:17
ALT 18 U/L (0-50) 06/28/24 08:17
Alkaline Phosphatase 54 U/L (38-126) 06/28/24 08:17
Total Protein 7.0 g/dl (6.3-8.2) 06/28/24 08:17
Albumin 4.5 g/dl (3.5-5.0) 06/28/24 08:17
Physical Exam
-
Afebrile. Systolic blood pressure and heart rate well-controlled. Reviewed records. He is awake and alert. He is in no acute distress. Breathing is unlabored. Abdomen is soft. Well-perfused extremities bilateral upper and lower.
[2024-06-30] MEDS: PROTONIX IV 40 MG IV (08:13)
[2024-06-30] MEDS: ASPIRIN 975 MG PO ×3 (08:13→21:18)
[2024-06-30] MEDS: COLCHICINE 0.6 MG PO ×2 (08:13→19:46)
[2024-06-30] MEDS: NSS (PRESERVATIVE FREE) 10 ML IV (08:14)
--- NOTE | 2024-06-30 09:12 | W.PN.HOSP.TC ---
Today's Communication/Plan
-
start oral toprol xl and valsartan
wean off esmolol/cardene drip
Assessment / Plan
Assessment / Plan
1. Acute pericarditis
-TTE/CT chest images reviewed and no pericardial effusion
-Troponin normal
-EKG reviewed and diffuse ST segment changes. A previous EKG from 21 stress test also showing some ST segment elevation but not as significant. Heart orientation on CT chest somewhat more horizontal and causing baseline changes on EKG ?
-Currently patient on aspirin 975 mg 3 times daily/colchicine 0.6 mg twice daily/PPI
-Chest pain is better from the current regimen, continue monitoring
2. Aortic ulcer
-CT a images reviewed located at arch just distal to left subclavian artery origin
-Vascular surgery evaluated and recommended to be treated as type B dissection
-Patient was on anti-impulse therapy with esmolol and Cardene for blood pressure control
-Repeat CT chest showing stable findings yesterday and vascular surgery has cleared patient to be discharged from their perspective
-Patient will require to follow-up in vascular surgery office in 3 months
-Start patient on oral Toprol-XL 25 mg twice daily and valsartan 80 mg daily and wean off Cardene/esmolol drip
3. Hypertensive emergency - resolved
-on esmolol/Cardene drip. being weaned off
4. Hyponatremia
-resolved
HLD
CKD Stage IIIA
DVT prophylaxis -SCD
CODE status -full code
Total critical care time 38 mins. Total critical care time documented does not include time spent on separately billed procedures or the services of residents, students, nurses or physician assistants. I personally saw and examined the patient. I
have reviewed all diagnostic interpretations and treatment plans as written. I was present for the phillips portions of any procedures performed and the inclusive time noted in any critical care statement. Critical care time includes patient management
by me, time spent at the patients bedside, time to review lab and imaging results, discussing patient care, documentation in the medical record, and time spent with the family or caregiver.
Anticipated Discharge: 24 - 48 hours
Subjective/Interval History
-
Date of Service: June 30, 2024
Patient denies of having any chest discomfort/epigastric discomfort/nausea overnight
Blood pressure controlled on cardene drip
No other acute issues reported
Objective Data
-
Labs:
Laboratory Results
06/30/24
04:17
WBC 7.4
Hgb 10.4 L
Hct 30.5 L
Plt Count 197
Sodium 138
Potassium 4.2
Chloride 112 H
Carbon Dioxide 19 L
BUN 14
Creatinine 1.2
Glucose 92
Calcium 8.6
Vital Signs:
Vital Signs
Temp Pulse Resp BP Pulse Ox
98.1 F 75 17 114/72 95
06/30/24 07:00 06/30/24 08:30 06/30/24 08:30 06/30/24 08:30 06/30/24 08:30
I&O
06/29/24 06/30/24 07/01/24
06:59 06:59 06:59
Intake Total 3524.3 / 3832.3 6251.5 / 6422.0 341.0 / 341.0
Output Total 1150 / 1150 5500 / 5500 700 / 700
Balance 2374.3 / 2682.3 751.5 / 922.0 -359.0 / -359.0
Review of Systems
-
Respiratory: Reports No Symptoms
Cardiac: Reports No Symptoms
Abdomen/GI: Reports No Symptoms
Physical Exam
-
General: No Apparent Distress and Comfortable
HEENT: Negative Oxygen
Respiratory: Clear to Auscultation
Cardiac: Regular Rhythm and S1/S2; Negative Murmur or Rub
GI: Soft, Nontender, Nondistended and Normal Bowel Sounds
Musculoskeletal: No Edema
Neuro: Awake, Alert, Oriented, No Motor Deficits and Nonfocal/Grossly Intact
Psych: Calm
--- NOTE | 2024-06-30 09:17 | W.PN.UPDATE ---
Update Note
Progress Note Update
Repeat CT reviewed with Dr. Amin and is stable. Continue medical management with blood pressure control and follow up with vascular surgery. CT surgery signing off. Thank you.
[2024-06-30] MEDS: DIOVAN 80 MG PO (09:42)
[2024-06-30] MEDS: TOPROL XL 25 MG PO (09:42)
--- NOTE | 2024-06-30 10:20 | PTCARENOTE ---
Rec'd pt at 0700. Pt AAOx3, follows commands, ZAVALA. Monitor SR 70's. SBP 110's on Cardene 2.5mg/hr and Esmolol 300mcg/kg/min. Pt denies any pain/SOB. Lungs CTA, pox 99% RA. +BS, abd soft/nt. Vdg large amts yellow urine via urinal. Dr. Guidry updated
that repeat CT was performed yesterday afternoon. ~0940-PO BP meds given-Toprol and Diovan. Cardene gtts turned off, weaning Esmolol gtts to off per MD. Pt updated.
--- NOTE | 2024-06-30 10:29 | W.PN.CD ---
Today's Communication / Plan
-
Continue to titrate beta-annette, wean off esmolol.
Continue valsartan at home dose, this can be titrated as needed 2.
Explained that he cannot go home until we are comfortable with his baseline med management
Impression / Plan
-
68 y/o male with hypertension, dyslipidemia (statin intolerance), CKD 3A, and non-occlusive CAD who is here for evaluation of chest discomfort since Tuesday at 9 PM. He has potential aortic arch intramural hemorrhage on CTA and CTS and Vascular sx
agree to treat like Type B dissection. Additionally, he has signs and symptoms of acute pericarditis with ECG changes and pleuritic CP.
aortic abnormality:
-CTA 06/29/24 Reviewed by Vascular: per Dr Guidry:
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 No significant change' plan is for bp control and follow up in 3 months.
- cont esmolol and cardene
-cardene off, valsartan resumed and will start metoprolol tartrate 25 mg p.o. every 6 hours, can transition to succinate for discharge. This will help us reach a steady state faster and titrate drugs more easily.
- did not tolerate labetalol caused significant hypotension, will cont esmolol with cardene gtt
Acute pericarditis
- Colchicine 0.6 mg bid
- Aspirin 975 mg tid for 2 weeks then decrease by 250 every week until back to baby aspirin
- PPI for gi protection
HTN:
-above goal
-on ARB as OP
-monitor on esmolol drip
HLD:
-statin intolerant
CKD3A:
-seems to be stable here. Monitor closely.
Subjective:
He has no further chest pain, no shortness of breath. He was anxious because he believed he was going home today and thought this was too quick.
CCT 31 minutes
Physical Exam
Vital Signs/Labs
Vital Signs
Temp Pulse Resp BP Pulse Ox
98.1 F 68 18 116/70 98
06/30/24 07:00 06/30/24 10:15 06/30/24 10:15 06/30/24 10:00 06/30/24 10:15
06/29/24 06/30/24 07/01/24
06:59 06:59 06:59
Actual Weight 90.9 kg 93.1 kg
06/30/24 04:17
06/30/24 04:17
PT 14.2 Sec (11.4-14.6) 06/28/24 14:13
INR 1.09 06/28/24 14:13
APTT 35.2 Sec (23.4-35.0) H 06/28/24 14:13
Magnesium 1.9 mg/dl (1.6-2.3) 06/29/24 05:17
Triglycerides 128 mg/dl (10-149) 06/29/24 05:17
LDL Cholesterol, Calc 116 mg/dl 06/29/24 05:17
VLDL Cholesterol, Calc 25 mg/dl (0-30) 06/29/24 05:17
HDL Cholesterol 60 mg/dl 06/29/24 05:17
TSH Cancelled 06/28/24 08:17
LAB Results
06/28/24 06/28/24 06/28/24
08:17 14:13 20:13
Troponin I < 0.012 < 0.012 < 0.012
Physical Exam
Constitutional: No acute distress
Cardiovascular: Rhythm & rate is regular, Pedal edema is absent, JVD pressure is normal and Systolic murmur absent
Respiratory: Respiratory effort normal, Lungs clear to auscul., Wheeze Absent, Crackles Absent and Rhonchi Absent
Neuro/Psych: AO x 3
Data Reviewed
-
Date of Service: June 30, 2024
Medical Decision Making: Test Interpretation (tele sinus 60-70's) and Review of Case with other Provider (reviewed plan with laurence, and Dr biggs)
[2024-06-30] MEDS: CITROMA 300 ML PO (12:07)
[2024-06-30] MEDS: LOPRESSOR 25 MG PO ×3 (12:51→23:15)
[2024-06-30] MEDS: DULCOLAX 10 MG PO (16:10)
--- NOTE | 2024-06-30 17:42 | PTCARENOTE ---
Esmolol gtts weaned down to 100mcg/kg/min throughout afternoon to keep SBP ~120's per cardiology. ~1600 SBP trending back up, Esmolol gtts increased to 150mcg/kg/min at this time, PO Lopressor given as per orders. at bedside.
[2024-06-30] MEDS: TUMS 2 TABLET PO (19:40)
--- NOTE | 2024-06-30 20:09 | PTCARENOTE ---
Received pt resting in bed, AAOx3. ZAVALA. NSR/SB on tele, HR 50-60s. On esmolol gtt- titrating per orders- see worklist. No complaints of chest pain or SOB. On RA, spo2 98%. Lungs CTA. + bowel sounds. Constipated- C/O stomach cramps- tums ordered and
given per request. Voiding in urinal. Skin c/d/i. B/L AC PIVs patent. Call quiñones reach. Monitoring
--- NOTE | 2024-06-30 22:25 | PTCARENOTE ---
Esmolol gtt max'd. SBP remains >130. PRITI Pineda aware. Cardene gtt re-started. HR low 60s.
[2024-07-01] VITALS (48 sets, daily range): BP systolic 110–166; BP diastolic 65–97; BMI 29.5
[2024-07-01] MEDS: BREVIBLOC 2500 MG 250 IV ×13 (00:50→23:24)
--- NOTE | 2024-07-01 04:44 | PTCARENOTE ---
Pt. rested on and off through the night. When awakened, he was somewhat confused, took a little while to answer questions appropriately. Remains Ox3, moving all ext., speech clear. He is without complaints. Reports drinking ETOH about every other
day at home, 2-3 drinks. 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 Continue to monitor. Calm and resting in bed at this time. Cardene gtt off. Weaning esmolol gtt as able. AM labs drawn
[2024-07-01 04:47] LABS: Hematocrit 29.1 % (39.0-52.0); Hemoglobin 10.4 g/dL (13.0-18.0); Mean Corp Hgb Conc. 35.7 g/dL (33.0-37.0); Mean Corpuscular Hgb 29.8 pg (27.0-31.0); Mean Corpuscular Volume 83.4 fL (80.0-94.0); Platelet Count 231 10^3/uL (130-400); Red Blood Cell Count 3.49 10^6/uL (4.70-6.10); White Blood Cell Count 9.4 10^3/uL (4.8-10.8)
[2024-07-01 05:14] LABS: Blood Urea Nitrogen 13 mg/dl (9-20); Calcium 8.5 mg/dl (8.4-10.2); Carbon Dioxide 22 mmol/L (22-30); Chloride 110 mmol/L (98-107); Estimated Creatinine Clearance 61 ml/min; Glucose 93 mg/dl (70-99); Magnesium 2.3 mg/dl (1.6-2.3); Potassium 4.2 mmol/L (3.5-5.1); Sodium 136 mmol/L (135-145); eGFR > 60.00
[2024-07-01] MEDS: LOPRESSOR 25 MG PO (05:32)
--- NOTE | 2024-07-01 06:25 | W.PN.INTV ---
Today's Communication / Plan
Recommendations
Antihypertensive therapy, Norvasc has been added
Wean esmolol as able
Thiamine
Assessment
-
Assessment: 68-year-old male non-smoker with a past medical history of nonobstructive CAD, CKD, history of Lyme disease, chronic LBP, hypertension/hyperlipidemia who presents with chest pain X 1 day. Pain described as starting in his throat and
then radiated to his chest. He told the hospitalist that he had chest pain that radiated to his neck and jaw as well as upper back. Initial vitals in the ER showed he was tachycardic to 109 bpm, breathing at 18 breaths/min, BP 170/98, saturating
98% on room air and afebrile to 98.7 �F. Labs showed Hb 13, WBC WNL at 10.6, creatinine 1.4, troponin negative x 2 at <0.012, lipase 60, TSH 2.46. CXR showed no acute cardiopulmonary process, and CT of the chest showed an abnormal focal
inflammatory process along the proximal aortic arch with a very small eccentric outpouching of contrast enhancement with surrounding inflammatory stranding, concerning for intramural hematoma versus ulceration versus dissection. No acute PE was
seen. CT surgery was consulted and esmolol drip was started. A CTA dissection study was obtained showing showing tiny focus of abnormally increased attenuation along the lateral aortic arch, with increased attenuation in the pericardial fluid
suspicious for hemopericardium. Vascular surgery also consulted with close observation recommended with repeat CT scan in 48 hours. Patient also given Dilaudid, morphine and IVF with NS 0.9% x 1L. Patient admitted to the ICU for further care, and
critical care services consulted for additional management/recommendations.
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
Impression:
#Chest pain -negative troponin x 2 - likely due to pericarditis (lateral ST elevations and MN-depressions seen on EKG from this AM)
#Abnormal CTA chest concerning for aortic arch intramural hemorrhage versus ulceration versus dissection
#Abnormal CTA chest with increased attenuation in pericardial fluid suggestive of possible hemopericardium
#CKD (baseline Cr 1.2-1.4)
#History of Lyme disease
#Hypertension
#Hyperlipidemia
Plan/recommendations
At this time, patient appears to be comfortable but remains critically ill on esmolol drip. Cardene weaned off earlier this morning
Repeat imaging shows stability of small penetrating aortic ulcer/IMH
Patient is without symptoms
TME symptoms noted. Neurological exam nonfocal
Moving forward
Continue with medical management
Transition to oral beta-annette and antihypertensive
Wean off Esmolol as able
Antihypertensive therapy per cardiology
Concern for pericarditis noted
Patient remains on aspirin high-dose, colchicine, per cardiology
Echocardiogram 06/28/2024 with normal biventricular function. Questionable intramural hematoma
No obvious pericardial effusion
Cardiology following
Mental status noted
Seems to be improved subsequent evaluation during the day
Patient is to 3 days a week of alcohol use.
Agree with IV thiamine. Thyroid function studies
Protonix also continues
Outpatient follow-up with vascular, CT surgery
Disposition efforts
Reviewed with critical care nursing, primary service
Updated at bedside
TCCT 31 min
Data:
CTA chest, abdomen, pelvis with/without contrast 06/28/2024:
1. Very small focus of abnormally increased attenuation along the aortic arch immediately above the level of interest on the noncontrast exam, suspicious for very small volume intramural hemorrhage. Following contrast administration, no significant
change of the findings along the aortic arch as compared with the prior examination. There is small increased attenuation pericardial fluid suggesting possible hemopericardium. May be slightly increased as compared with the prior examination,
somewhat limited by artifacts on the prior study. Together, these findings remain suspicious for some form of acute aortic syndrome along the lateral arch. Limited intimal tear is a differential consideration.
2. There is contrast extending to the margin of the left ventricular apex suggesting thinning at this level. There is no diverticulum and there is no adjacent extravasation or inflammatory change.
CXR 06/28/2024: No active pulmonary process.
Subjective Dataa
Subjective Data
Date of Service:
Date of Service: July 01, 2024
Chief Complaint: [employer] Follow Up
Subjective:
Patient is without complaints. He is confused somewhat during my assessment when awoken. Disoriented. at bedside. Patient denies chest pain, abdominal pain, nausea, headaches
Objective Data
Data Reviewed
Vital Signs / I&O / Oxygen:
Vital Signs
Temp Pulse Resp BP Pulse Ox
97.8 F 67 14 125/81 96
07/01/24 03:20 07/01/24 05:45 07/01/24 05:45 07/01/24 05:45 07/01/24 05:45
Intake and Output
06/29/24 06/30/24 07/01/24
06:59 06:59 06:59
Intake Total 3524.3 / 3832.3 6251.5 / 6422.0 3454.6 / 3454.6
Output Total 1150 / 1150 5500 / 5500 3800 / 3800
Balance 2374.3 / 2682.3 751.5 / 922.0 -345.4 / -345.4
SaO2 96
Physical Exam
General: Comfortable
HEENT: Normocephalic and Anicteric
Cardiovascular: S1-S2, Regular Rhythm, Murmur (n), Rub (n) and Peripheral Edema (Negative)
Respiratory: Wheeze (Negative), Crackles (Negative), Rhonchi (Negative), Non-Labored Respirations and Stridor (n)
GI: Soft, Non Distended, Non Tender and Normal Bowel Sounds
Neurology: Awake, Alert and No Motor Deficits (Moves all extremities, nonfocal, cranial nerves grossly intact)
Skin: Warm, Dry, Jaundice (Negative) and Rash (n)
Labs/Micro/Reports
Lab Data
07/01/24 04:26
07/01/24 04:26
[2024-07-01] MEDS: ASPIRIN 975 MG PO ×3 (08:47→22:44)
[2024-07-01] MEDS: DIOVAN 160 MG PO (08:48)
[2024-07-01] MEDS: NSS (PRESERVATIVE FREE) 10 ML IV (08:48)
[2024-07-01] MEDS: THIAMINE INJECTION 200 MG IV ×2 (08:48→19:36)
[2024-07-01] MEDS: PROTONIX IV 40 MG IV (08:48)
[2024-07-01] MEDS: COLCHICINE 0.6 MG PO ×2 (08:48→19:35)
[2024-07-01] MEDS: DUPHALAC/CHRONULAC 20 GRAMS PO ×2 (08:48→19:35)
[2024-07-01] MEDS: NORVASC 5 MG PO (08:50)
--- NOTE | 2024-07-01 09:24 | PTCARENOTE ---
Rec'd pt at 0700. Pt with some confusion, clearing as pt waking up more. Answering orientation questions correctly, ZAVALA with equal strength. Monitor SBR/SR. Esmolol at 250mcg/kg/min. Lungs CTA. Abd round/full. Pt c/o constipation, Lactulose ordered
and given, pt refusing Dulcolax supp. Vdg yellow urine via urinal. OOB to chair with min assist of 1. at bedside, updated.
--- NOTE | 2024-07-01 09:46 | W.PN.HOSP.TC ---
Today's Communication/Plan
-
see note
Assessment / Plan
Assessment / Plan
1. Acute pericarditis
-TTE/CT chest images reviewed and no pericardial effusion
-Troponin normal
-EKG reviewed and diffuse ST segment changes. A previous EKG from 21 stress test also showing some ST segment elevation but not as significant. Heart orientation on CT chest somewhat more horizontal and causing baseline changes on EKG ?
-Currently patient on aspirin 975 mg 3 times daily/colchicine 0.6 mg twice daily/PPI
-Chest pain is better from the current regimen, continue monitoring
2. Aortic ulcer
-CT a images reviewed located at arch just distal to left subclavian artery origin
-Vascular surgery evaluated and recommended to be treated as type B dissection
-Patient was on anti-impulse therapy with esmolol and Cardene for blood pressure control
-Repeat CT chest showing stable findings yesterday and vascular surgery has cleared patient to be discharged from their perspective
-Patient will require to follow-up in vascular surgery office in 3 months
-Patient have been started on increased dose of valsartan and Lopressor 25 mg every 6. Also getting Norvasc 5 mg daily.
-Continue wean off esmolol/nicardipine drip
3. Hypertensive emergency - resolved
-on esmolol/Cardene drip. being weaned off
4. Hyponatremia
-resolved
5. TME - mild
-Patient was apparently confused in the morning when evaluated by rehab liaison. Mentation relatively clear during my round
-Patient not getting any sedating medication. Try to avoid going forward
-Check TSH/free T4/B12/folate
-Reported history of alcohol use, no other signs to support withdrawal. Continue to monitor. Empiric IV thiamine ordered
6. Constipation
-Patient felt nauseous with oral laxative yesterday
-Dulcolax suppository followed by enema if no bowel movement. Oral lactulose 4 doses ordered as well
HLD
CKD Stage IIIA
DVT prophylaxis -SCD
CODE status -full code
Care plan discussed with RN/family
Total critical care time 36 mins. Total critical care time documented does not include time spent on separately billed procedures or the services of residents, students, nurses or physician assistants. I personally saw and examined the patient. I
have reviewed all diagnostic interpretations and treatment plans as written. I was present for the phillips portions of any procedures performed and the inclusive time noted in any critical care statement. Critical care time includes patient management
by me, time spent at the patients bedside, time to review lab and imaging results, discussing patient care, documentation in the medical record, and time spent with the family or caregiver.
Anticipated Discharge: 24 - 48 hours
Subjective/Interval History
-
Date of Service: July 01, 2024
Patient has some reported confusion in the morning
Remains on esmolol/Cardene drip, able to be weaned off of last evening although needed to be restarted back due to high blood pressure
Patient could not tolerate oral laxative and was feeling nauseous no vomiting.
No bowel movement yesterday
Objective Data
-
Labs:
Laboratory Results
07/01/24
04:26
WBC 9.4
Hgb 10.4 L
Hct 29.1 L
Plt Count 231
Sodium 136
Potassium 4.2
Chloride 110 H
Carbon Dioxide 22
BUN 13
Creatinine 1.2
Glucose 93
Calcium 8.5
Vital Signs:
Vital Signs
Temp Pulse Resp BP Pulse Ox
97.9 F 63 17 136/95 97
07/01/24 07:00 07/01/24 09:30 07/01/24 09:30 07/01/24 09:30 07/01/24 09:30
I&O
06/30/24 07/01/24 07/02/24
06:59 06:59 06:59
Intake Total 6251.5 / 6422.0 3454.6 / 3454.6
Output Total 5500 / 5500 3800 / 3800
Balance 751.5 / 922.0 -345.4 / -345.4
Review of Systems
-
Respiratory: Reports No Symptoms
Cardiac: Reports No Symptoms
Abdomen/GI: Reports No Symptoms
Physical Exam
-
General: No Apparent Distress and Comfortable
HEENT: Negative Oxygen
Respiratory: Clear to Auscultation
Cardiac: Regular Rhythm and S1/S2; Negative Murmur or Rub
GI: Soft, Nontender and Nondistended
Musculoskeletal: No Edema
Neuro: Awake, Alert, Oriented, No Motor Deficits and Nonfocal/Grossly Intact
Psych: Calm
--- NOTE | 2024-07-01 11:17 | W.PN.CD ---
Today's Communication / Plan
-
-Valsartan increased to 160mg daily, continue metoprolol tartrate 37.5 mg p.o. every 6 hours, can transition to succinate for discharge. This will help us reach a steady state faster and titrate drugs more easily.
-adding amlodipine 5mg a day
Impression / Plan
-
68 y/o male with hypertension, dyslipidemia (statin intolerance), CKD 3A, and non-occlusive CAD who is here for evaluation of chest discomfort since Tuesday at 9 PM. He has potential aortic arch intramural hemorrhage on CTA and CTS and Vascular sx
agree to treat like Type B dissection. Additionally, he has signs and symptoms of acute pericarditis with ECG changes and pleuritic CP.
aortic abnormality:
-CTA 06/29/24 Reviewed by Vascular: per Dr Guidry:
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 No significant change' plan is for bp control and follow up in 3 months.
- cont esmolol and cardene---overnight required more support with max esmolol and cardene, then quickly off cardene, remians on esmolol
-Valsartan increased to 160mg daily, increase metoprolol tartrate 37.5 mg p.o. every 6 hours, can transition to succinate for discharge. This will help us reach a steady state faster and titrate drugs more easily.
-adding amlodipine 5mg a day
- did not tolerate labetalol caused significant hypotension, will cont esmolol with cardene gtt
Acute pericarditis
- Colchicine 0.6 mg bid
- Aspirin 975 mg tid for 2 weeks then decrease by 250 every week until back to baby aspirin
- PPI for gi protection
HTN:
-above goal
-on ARB as OP
-monitor on esmolol drip
HLD:
-statin intolerant
CKD3A:
-seems to be stable here. Monitor closely.
Subjective:
He has no cp or sob. He feels LH at times.
CCT 31 minutes
Physical Exam
Vital Signs/Labs
Vital Signs
Temp Pulse Resp BP Pulse Ox
98.7 F 59 18 137/78 99
07/01/24 11:00 07/01/24 11:00 07/01/24 11:00 07/01/24 11:00 07/01/24 11:00
06/30/24 07/01/24 07/02/24
06:59 06:59 06:59
Actual Weight 93.1 kg 93.3 kg
07/01/24 04:26
07/01/24 04:26
PT 14.2 Sec (11.4-14.6) 06/28/24 14:13
INR 1.09 06/28/24 14:13
APTT 35.2 Sec (23.4-35.0) H 06/28/24 14:13
Magnesium 2.3 mg/dl (1.6-2.3) 07/01/24 04:26
Triglycerides 128 mg/dl (10-149) 06/29/24 05:17
LDL Cholesterol, Calc 116 mg/dl 06/29/24 05:17
VLDL Cholesterol, Calc 25 mg/dl (0-30) 06/29/24 05:17
HDL Cholesterol 60 mg/dl 06/29/24 05:17
TSH Cancelled 06/28/24 08:17
LAB Results
06/28/24 06/28/24
14:13 20:13
Troponin I < 0.012 < 0.012
Physical Exam
Constitutional: No acute distress
Cardiovascular: Rhythm & rate is regular, Pedal edema is absent, JVD pressure is normal, Systolic murmur absent and Diastolic murmur absent
Respiratory: Respiratory effort normal, Lungs clear to auscul., Wheeze Absent, Crackles Absent and Rhonchi Absent
Neuro/Psych: AO x 3
Data Reviewed
-
Date of Service: July 01, 2024
Medical Decision Making: Review of Case with other Provider (Dr Jarvis and Kandy ICU nurse, med changes)
[2024-07-01 11:35] LABS: Free T4 1.34 ng/dl (0.78-2.19)
[2024-07-01 12:25] LABS: Folate > 20.0 ng/ml (2.76-20); Vitamin B12 329 pg/ml (239-931)
[2024-07-01] MEDS: LOPRESSOR PO (12:57)
[2024-07-01] MEDS: LOPRESSOR 37.5 MG PO ×3 (13:16→23:25)
[2024-07-01] MEDS: TUMS 2 TABLET PO (13:16)
--- NOTE | 2024-07-01 14:21 | PTCARENOTE ---
Pt with increasing abdominal discomfort, requesting Tums. Ordered obtained, pt without relief. Continues to refuse Dulcolax supp. Dr. Jarvis notified of pt's abd pain, abd xray ordered. Pt's SBP noted to be increasing despite PO meds being given, LAC
site reassessed, flushes without difficulty but appeared slightly swollen. IV site removed, 20g placed in right hand and Esmolol now infusing via new IV site. at bedside, updated.
--- NOTE | 2024-07-01 14:49 | PTCARENOTE ---
Pt stated he felt like he could have a BM, assisted into restroom. Pt with large amt of flatus, stated he had relief of pain.
--- NOTE | 2024-07-01 17:49 | PTCARENOTE ---
~1630-SBP remained elevated in 140-150's, Cardene gtts restarted at 2.5mg/hr. Cardiology updated on current events, no new orders. Pt and informed of plan of care. Pt OOB to chair at this time.
[2024-07-01] MEDS: MYLICON 80 MG PO (19:45)
[2024-07-01] MEDS: TUMS EX (EXTRA STRENGTH) CHEWABLE 2 TABLET PO (19:52)
--- NOTE | 2024-07-01 20:00 | PTCARENOTE ---
Received pt resting in bed, AAOx3. ZAVALA. NSR/SB on tele, HR 50-60s. On esmolol gtt (max'd) and cardene gtt for SBP. See worklist for titrations. No complaints of chest pain or SOB. On RA, spo2 96%. Lungs CTA but dim at bases. Hypoactive bowel sounds.
Constipated- C/O stomach cramps/upset- tums and simethicone ordered and given per request. Refusing suppository. Voiding in urinal. UA sent. Skin c/d/i. Call quiñones reach. Monitoring
[2024-07-01 20:03] LABS: Urine Albumin Trace (Neg - Trace); Urine Bilirubin Negative (Negative); Urine Character Clear (Clear); Urine Color Yellow; Urine Glucose Negative (Negative); Urine Ketone Trace (Negative); Urine Leukocyte Negative (Negative); Urine Nitrite Negative (Negative); Urine Occult Blood Negative (Negative); Urine Urobilinogen Negative (Neg - 1+)
[2024-07-01] MEDS: CARDENE 200 IV (21:52)
--- NOTE | 2024-07-01 23:45 | PTCARENOTE ---
No change in assessment. Pt. resting. Attempting to wean esmolol- see worklist
[2024-07-02] VITALS (41 sets, daily range): BP systolic 100–150; BP diastolic 65–117; BMI 30.1
[2024-07-02] MEDS: BREVIBLOC 2500 MG 250 IV ×5 (01:17→09:46)
[2024-07-02 04:12] LABS: Hematocrit 32.4 % (39.0-52.0); Hemoglobin 11.5 g/dL (13.0-18.0); Mean Corp Hgb Conc. 35.5 g/dL (33.0-37.0); Mean Corpuscular Hgb 30.7 pg (27.0-31.0); Mean Corpuscular Volume 86.6 fL (80.0-94.0); Mean Platelet Volume 10.1 fL (7.4-10.4); Platelet Count 242 10^3/uL (130-400); Red Blood Cell Count 3.74 10^6/uL (4.70-6.10); Red Cell Dist. Width 13.6 % (11.5-14.5); White Blood Cell Count 9.8 10^3/uL (4.8-10.8)
[2024-07-02] MEDS: TUMS EX (EXTRA STRENGTH) CHEWABLE 2 TABLET PO (04:21)
[2024-07-02 04:39] LABS: Blood Urea Nitrogen 13 mg/dl (9-20); Calcium 8.8 mg/dl (8.4-10.2); Carbon Dioxide 20 mmol/L (22-30); Chloride 106 mmol/L (98-107); Estimated Creatinine Clearance 66 ml/min; Glucose 101 mg/dl (70-99); Potassium 3.7 mmol/L (3.5-5.1); Sodium 134 mmol/L (135-145); eGFR > 60.00
[2024-07-02] MEDS: LOPRESSOR 37.5 MG PO ×3 (05:20→17:57)
--- NOTE | 2024-07-02 06:20 | PTCARENOTE ---
Pt. uncomfortable in bed, assisted into chair. He sat for 20 minutes then wanted to get back into bed. Pt. impulsive at times overnight, getting OOB to go to the bathroom without calling for assistance. Bed alarm on for safety overnight. Able to
turn cardene gtt off and esmolol gtt currently at 225mcg.
--- NOTE | 2024-07-02 07:21 | W.PN.INTV ---
Addendum entered and electronically signed by Katelyn Mills DO 07/02/24 14:35:
Transfer orders placed, we will sign off at this time, please call with questions
Original Note:
Today's Communication / Plan
Recommendations
Remains on gtt, can start to wean esmolol more aggressively based on new parameters
Cards following for BP adjustments
PT/OT, OOB
Bowel regiment for ileus/constipation
Can likely transfer to tele once off gtts
Assessment
-
68-year-old male non-smoker with a past medical history of nonobstructive CAD, CKD, history of Lyme disease, chronic LBP, hypertension/hyperlipidemia who presents with chest pain X 1 day. Pain described as starting in his throat and then radiated
to his chest. He told the hospitalist that he had chest pain that radiated to his neck and jaw as well as upper back. Initial vitals in the ER showed he was tachycardic to 109 bpm, breathing at 18 breaths/min, BP 170/98, saturating 98% on room air
and afebrile to 98.7 �F. Labs showed Hb 13, WBC WNL at 10.6, creatinine 1.4, troponin negative x 2 at <0.012, lipase 60, TSH 2.46. CXR showed no acute cardiopulmonary process, and CT of the chest showed an abnormal focal inflammatory process along
the proximal aortic arch with a very small eccentric outpouching of contrast enhancement with surrounding inflammatory stranding, concerning for intramural hematoma versus ulceration versus dissection. No acute PE was seen. CT surgery was
consulted and esmolol drip was started. A CTA dissection study was obtained showing showing tiny focus of abnormally increased attenuation along the lateral aortic arch, with increased attenuation in the pericardial fluid suspicious for
hemopericardium. Vascular surgery also consulted with close observation recommended with repeat CT scan in 48 hours. Patient also given Dilaudid, morphine and IVF with NS 0.9% x 1L. Patient admitted to the ICU for further care, and critical care
services consulted for additional management/recommendations.
#Chest pain -negative troponin x 2 - likely due to pericarditis (lateral ST elevations and NM-depressions seen on EKG from this AM)
#Abnormal CTA chest concerning for aortic arch intramural hemorrhage versus ulceration versus dissection
#Abnormal CTA chest with increased attenuation in pericardial fluid suggestive of possible hemopericardium
#CKD (baseline Cr 1.2-1.4)
#History of Lyme disease
#Hypertension
#Hyperlipidemia
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
Plan/recommendations
At this time, patient appears to be comfortable but remains critically ill on esmolol drip.
Cardene weaned off earlier this morning
Repeat imaging shows stability of small penetrating aortic ulcer/IMH
Vascular has signed off
Patient is without symptoms
TME symptoms noted. Neurological exam nonfocal
Moving forward
Continue with medical management
Transition to oral beta-annette and antihypertensive
Wean off Esmolol as able
Antihypertensive therapy per cardiology, parameters more relaxed
Reviewed with RN parameters for weaning off esmolol gtt
Concern for pericarditis noted
Patient remains on aspirin high-dose, colchicine, per cardiology
Echocardiogram 06/28/2024 with normal biventricular function. Questionable intramural hematoma
No obvious pericardial effusion
Cardiology following
Mental status noted
Seems to be improved subsequent evaluation during the day
Patient is to 3 days a week of alcohol use.
Agree with IV thiamine. Thyroid function studies
Protonix also continues
N/V, zofran added
Ileus suspected, on bowel regiment
Outpatient follow-up with vascular, CT surgery
Data:
CTA chest, abdomen, pelvis with/without contrast 06/28/2024:
1. Very small focus of abnormally increased attenuation along the aortic arch immediately above the level of interest on the noncontrast exam, suspicious for very small volume intramural hemorrhage. Following contrast administration, no significant
change of the findings along the aortic arch as compared with the prior examination. There is small increased attenuation pericardial fluid suggesting possible hemopericardium. May be slightly increased as compared with the prior examination,
somewhat limited by artifacts on the prior study. Together, these findings remain suspicious for some form of acute aortic syndrome along the lateral arch. Limited intimal tear is a differential consideration.
2. There is contrast extending to the margin of the left ventricular apex suggesting thinning at this level. There is no diverticulum and there is no adjacent extravasation or inflammatory change.
CXR 06/28/2024: No active pulmonary process.
-----
Critical Care time 40 mins -- The patient is admitted for acute critical illness for the treatment of vital organ failure and/or prevention of further life-threatening conditions. Total care includes time spent in review of history, physical exam,
medications, hemodynamic/ventilator parameters, laboratory data, imaging and discussion with house staff, pharmacy, respiratory therapy, lead performance support analyst, and nursing.
Subjective Dataa
Subjective Data
Date of Service:
Date of Service: July 02, 2024
Chief Complaint: [employer] Follow Up
Subjective:
doing well, nausea/vomiting this AM
remains on esmolol
Objective Data
Data Reviewed
Vital Signs / I&O / Oxygen:
Vital Signs
Temp Pulse Resp BP Pulse Ox
97.5 F 60 14 135/72 99
07/02/24 03:30 07/02/24 06:30 07/02/24 06:30 07/02/24 06:30 07/02/24 06:30
Intake and Output
07/01/24 07/02/24 07/03/24
06:59 06:59 06:59
Intake Total 3454.6 / 3586.6 3764.5 / 3764.5
Output Total 3800 / 3800 2500 / 2500
Balance -345.4 / -213.4 1264.5 / 1264.5
SaO2 99
Physical Exam
General: Comfortable
HEENT: Normocephalic and Anicteric
Cardiovascular: S1-S2, Regular Rhythm, Murmur (n), Rub (n) and Peripheral Edema (Negative)
Respiratory: Wheeze (Negative), Crackles (Negative), Rhonchi (Negative), Non-Labored Respirations and Stridor (n)
GI: Soft, Non Distended, Non Tender and Normal Bowel Sounds
Neurology: Awake, Alert and No Motor Deficits (Moves all extremities, nonfocal, cranial nerves grossly intact)
Skin: Warm, Dry, Jaundice (Negative) and Rash (n)
Labs/Micro/Reports
Lab Data
07/02/24 03:48
07/02/24 03:48
--- NOTE | 2024-07-02 08:00 | PTCARENOTE ---
Received pt @ change of shift. Pt. AAOx3. SB-SR w 1st degree AVB. Esmolol gtt infusing via #20 R hand to keep SBP between 120-130- see flow sheet. Denies chest pain. SpO2 96% on RA. Auscultated dim breath sounds @ bases. Hypoactive BS, abd
soft/tender to palpation. Int nausea/dry heaving/no vomit; poor anna. Cont b/b. Ongoing constipation; mod/lg liq BM this AM. Assisted w hygiene care. Instructed on how to report care concerns and call nuria w in reach.
[2024-07-02] MEDS: ASPIRIN 975 MG PO ×3 (08:14→20:58)
[2024-07-02] MEDS: DIOVAN 160 MG PO ×2 (08:14→20:50)
[2024-07-02] MEDS: NSS (PRESERVATIVE FREE) 10 ML IV (08:14)
[2024-07-02] MEDS: PROTONIX IV 40 MG IV (08:14)
[2024-07-02] MEDS: DUPHALAC/CHRONULAC 20 GRAMS PO ×2 (08:15→20:51)
[2024-07-02] MEDS: NORVASC 5 MG PO (08:15)
[2024-07-02] MEDS: COLCHICINE 0.6 MG PO ×2 (08:15→20:50)
[2024-07-02] MEDS: THIAMINE INJECTION 200 MG IV ×2 (08:15→20:52)
--- NOTE | 2024-07-02 08:40 | W.PN.CD ---
Today's Communication / Plan
-
Switch amlodipine to nifedipine
Wean esmolol drip
If BP remains elevated throughout day will make valsartan bid
Impression / Plan
-
68 y/o male with hypertension, dyslipidemia (statin intolerance), CKD 3A, and non-occlusive CAD who is here for evaluation of chest discomfort since Tuesday at 9 PM. He has potential aortic arch intramural hemorrhage on CTA and CTS and Vascular sx
agree to treat like Type B dissection. Additionally, he has signs and symptoms of acute pericarditis with ECG changes and pleuritic CP.
aortic abnormality:
-CTA 06/29/24 Reviewed by Vascular: per Dr Guidry:
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 No significant change' plan is for bp control and follow up in 3 months.
- remains on Esmolol, weaning today
-Valsartan increased to 160mg daily, increase metoprolol tartrate 37.5 mg p.o. every 6 hours, can transition to succinate for discharge. This will help us reach a steady state faster and titrate drugs more easily.
-switching amlodipine to nifedipine 30 mg
- IF BP remains elevated with switching to nifedipine 30 throughout today, will make Valsartan 160 bid
- did not tolerate labetalol caused significant hypotension, will cont esmolol with cardene gtt
Acute pericarditis
- Colchicine 0.6 mg bid
- Aspirin 975 mg tid for 2 weeks(started Jun 29) then decrease by 250 every week until back to baby aspirin
- PPI for gi protection
Constipation and abdominal distension
- OOB as much as possible
- per primary
HTN:
-above goal
-on ARB as OP
-monitor on esmolol drip
HLD:
-statin intolerant
CKD3A:
-seems to be stable here. Monitor closely.
Subjective:
He has no cp or sob. He feels LH at times.
CCT 31 minutes
Physical Exam
Vital Signs/Labs
Vital Signs
Temp Pulse Resp BP Pulse Ox
97.5 F 61 18 128/94 98
07/02/24 03:30 07/02/24 08:15 07/02/24 08:00 07/02/24 08:15 07/02/24 08:12
07/01/24 07/02/24 07/03/24
06:59 06:59 06:59
Actual Weight 205 lb 11.06 oz 209 lb 14.081 oz
07/02/24 03:48
07/02/24 03:48
PT 14.2 Sec (11.4-14.6) 06/28/24 14:13
INR 1.09 06/28/24 14:13
APTT 35.2 Sec (23.4-35.0) H 06/28/24 14:13
Magnesium 2.3 mg/dl (1.6-2.3) 07/01/24 04:26
Triglycerides 128 mg/dl (10-149) 06/29/24 05:17
LDL Cholesterol, Calc 116 mg/dl 06/29/24 05:17
VLDL Cholesterol, Calc 25 mg/dl (0-30) 06/29/24 05:17
HDL Cholesterol 60 mg/dl 06/29/24 05:17
TSH 2.90 uIU/ml (0.47-4.68) 07/01/24 04:26
Free T4 1.34 ng/dl (0.78-2.19) 07/01/24 04:26
Physical Exam
Constitutional: No acute distress
EENT: Anicteric
Cardiovascular: Rhythm & rate is regular and Pedal edema is absent
Respiratory: Respiratory effort normal and Lungs clear to auscul.
GI: Distention present
Neuro/Psych: AO x 3
Data Reviewed
-
Date of Service: July 02, 2024
EKG: Tracing Personally Visualized and interpreted
Echo: Report Reviewed by me
Labs: Labs Reviewed by me
[2024-07-02] MEDS: ZOFRAN 4 MG IV ×2 (09:30→18:10)
[2024-07-02] MEDS: SENOKOT-S 1 TABLET PO (09:43)
[2024-07-02] MEDS: PROCARDIA XL (EXTENDED RELEASE) 30 MG PO (09:43)
[2024-07-02] MEDS: MIRALAX 17 GRAMS PO (09:44)
--- NOTE | 2024-07-02 10:49 | PTCARENOTE ---
Esmolol gtt tapered to off per orders @ 1035- see flow sheet. SBP remains w in parameters. Pt. w one episode of nausea w small amt of vomit- admin prn Zofran- see JAN. Pt. reported relieved of nausea. Admin PO standing BP med and PO PRN BM meds-
see MAR. @ bedside, updated on plan of care. Call quiñones remains w in reach.
--- NOTE | 2024-07-02 12:36 | CM ---
CM following re: discharge planning.
Discussed in Rounds, reviewed pt's chart, met with pt and pt's spouse at bedside. Per rounds meeting, Esmolol gtt tapered to off , pt will be downgraded from ICU level of care.
IMM reviewed, placed on chart, pt has a copy.
D/C plan: home with anticipated no needs. Spouse to transport at discharge.
CM will follow with discharge plan updates as hospitalization progresses
--- NOTE | 2024-07-02 13:31 | W.PN.HOSP.TC ---
Today's Communication/Plan
-
Monitor vital signs
see plan
Wean esmolol, if weaned off and okay with cardiology then can be transferred to tele later todayi
Laxatives, enema
Continue with BP meds
Assessment / Plan
Assessment / Plan
General: No Apparent Distress and Comfortable
HEENT: Negative Oxygen
Respiratory: Clear to Auscultation
Cardiac: Regular Rhythm and S1/S2; Negative Murmur or Rub
GI: Soft, Nontender and Nondistended
Musculoskeletal: No Edema
Neuro: Awake, Alert, Oriented, No Motor Deficits and Nonfocal/Grossly Intact
Psych: Calm
Acute pericarditis
-TTE/CT chest images reviewed and no pericardial effusion
-Troponin normal
-EKG reviewed and diffuse ST segment changes. A previous EKG from 21 stress test also showing some ST segment elevation but not as significant. Heart orientation on CT chest somewhat more horizontal and causing baseline changes on EKG ?
-Currently patient on aspirin 975 mg 3 times daily/colchicine 0.6 mg twice daily/PPI
-Chest pain is better from the current regimen, continue monitoring
Aortic ulcer
-CT a images reviewed located at arch just distal to left subclavian artery origin
-Vascular surgery evaluated and recommended to be treated as type B dissection
-Patient was on anti-impulse therapy with esmolol and Cardene for blood pressure control
-Repeat CT chest showing stable findings yesterday and vascular surgery has cleared patient to be discharged from their perspective
-Patient will require to follow-up in vascular surgery office in 3 months
-Patient have been started on increased dose of valsartan and Lopressor 25 mg every 6. Also now getting nifedipine
wean esmolol
Patient will follow-up with vascular surgery for repeat CT scan in 3 months
Hypertensive emergency - resolved
-on esmolol/Cardene drip. being weaned off
Hyponatremia
Monitor
TME - mild
resolved
-Reported history of alcohol use, no other signs to support withdrawal. Continue to monitor. Empiric IV thiamine ordered
Constipation
Continue with laxatives, now agreeable for enema
Abdominal x-ray with fecal burden
-Dulcolax suppository
HLD
CKD Stage IIIA
DVT prophylaxis -SCD
CODE status -full code
Care plan discussed with RN/family
I spent a total of 51 minutes with the patient or on the floor. More than 50% of this time involved counseling and coordination of care.
Anticipated Discharge: 24 - 48 hours
Subjective/Interval History
-
Date of Service: July 02, 2024
Denies pain
Objective Data
-
Labs:
Laboratory Results
07/02/24
03:48
WBC 9.8
Hgb 11.5 L
Hct 32.4 L
Plt Count 242
Sodium 134 L
Potassium 3.7
Chloride 106
Carbon Dioxide 20 L
BUN 13
Creatinine 1.1
Glucose 101 H
Calcium 8.8
Vital Signs:
Vital Signs
Temp Pulse Resp BP Pulse Ox
98.3 F 62 19 132/70 95
07/02/24 11:31 07/02/24 11:50 07/02/24 11:30 07/02/24 11:50 07/02/24 11:30
I&O
07/01/24 07/02/24 07/03/24
06:59 06:59 06:59
Intake Total 3454.6 / 3586.6 3764.5 / 3883.5 690.4 / 690.4
Output Total 3800 / 3800 2500 / 2500
Balance -345.4 / -213.4 1264.5 / 1383.5 690.4 / 690.4
--- NOTE | 2024-07-02 18:15 | PTCARENOTE ---
Pt. w ongoing int nausea w very poor appetite. Admin antiemetics- see MAR and pt. attempting dinner. Dr. Mckinley aware of ongoing constipation as well. Further orders received and tap water enema admin w mx loose BMs s/p enema. Remains off esmolol
gtt. SBP's remain 130-140. Tele orders received earlier; tele pack applied and pt. ambulating in room independently. remains @ bedside.
[2024-07-03 00:48] VITALS: BP 149/74
[2024-07-03] MEDS: LOPRESSOR 37.5 MG PO ×2 (00:49→05:51)
[2024-07-03 05:50] VITALS: BP 140/82
[2024-07-03 05:55] LABS: Hematocrit 30.6 % (39.0-52.0); Hemoglobin 10.7 g/dL (13.0-18.0); Mean Corpuscular Hgb 29.6 pg (27.0-31.0); Mean Corpuscular Volume 84.8 fL (80.0-94.0); Mean Platelet Volume 9.9 fL (7.4-10.4); Platelet Count 241 10^3/uL (130-400); Red Blood Cell Count 3.61 10^6/uL (4.70-6.10); Red Cell Dist. Width 13.9 % (11.5-14.5); White Blood Cell Count 7.4 10^3/uL (4.8-10.8)
[2024-07-03 06:17] LABS: Blood Urea Nitrogen 14 mg/dl (9-20); Calcium 8.6 mg/dl (8.4-10.2); Carbon Dioxide 22 mmol/L (22-30); Chloride 109 mmol/L (98-107); Estimated Creatinine Clearance 68 ml/min; Glucose 84 mg/dl (70-99); Potassium 3.9 mmol/L (3.5-5.1); Sodium 135 mmol/L (135-145); eGFR > 60.00
--- NOTE | 2024-07-03 06:20 | PTCARENOTE ---
Report given to IVU night RNMarlon. Pt tsx'd to bed 2242 via wheelchair w/ personal belongings.
--- NOTE | 2024-07-03 06:31 | PTCARENOTE ---
Pt transferred from ICU to IVU by staff via wheelchair. Pt ambulated from WC to bed without assistance. Pt on TELE monitor in NSR with bradycardic periods and VSS. Pt denied any pain or discomfort and agreed to report any changes in pain, comfort,
or concern to RN immediately. Pt watching TV in bed with call quiñones in reach. Plan of care ongoing.
[2024-07-03 07:50] VITALS: BP 151/72
[2024-07-03] MEDS: ASPIRIN 975 MG PO (07:51)
[2024-07-03] MEDS: DIOVAN 160 MG PO (07:51)
[2024-07-03] MEDS: PROTONIX 40 MG PO (07:51)
[2024-07-03] MEDS: COLCHICINE 0.6 MG PO (07:51)
[2024-07-03] MEDS: PROCARDIA XL (EXTENDED RELEASE) 30 MG PO (07:52)
[2024-07-03 08:48] VITALS: BP 132/65
--- NOTE | 2024-07-03 09:06 | PTCARENOTE ---
Assumed care of pt from night RN. Pt received awake and alert, Ox3. VSs, CM shows NSR/SB, POX 98% on RA. He denies any pain or discomfort., ambulating around room freely. For possible D/C this pm.
--- NOTE | 2024-07-03 09:31 | W.PN.CD ---
Addendum entered and electronically signed by Vito Adams MD 07/03/24 13:50:
Patient will be d/c today, has scheduled f/u with Leonora Reynolds on Jul 20, 2024, at 9:00 AM .
Original Note:
Today's Communication / Plan
-
Monitor BP
If BP remains elevated increase nifedipine
Impression / Plan
-
68 y/o male with hypertension, dyslipidemia (statin intolerance), CKD 3A, and non-occlusive CAD who is here for evaluation of chest discomfort since Tuesday at 9 PM. He has potential aortic arch intramural hemorrhage on CTA and CTS and Vascular sx
agree to treat like Type B dissection. Additionally, he has signs and symptoms of acute pericarditis with ECG changes and pleuritic CP.
aortic abnormality:
-CTA 06/29/24 Reviewed by Vascular: per Dr Guidry:
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 No significant change' plan is for bp control and follow up in 3 months.
- remains on Esmolol, weaning today
-Valsartan increased to 160mg bid, increase metoprolol succ 75 mg bid.
-nifedipine 30
- IF BP remains elevated increase nifedipine to 60 mg
- did not tolerate labetalol caused significant hypotension, will cont esmolol with cardene gtt
Acute pericarditis
- Colchicine 0.6 mg bid
- Aspirin 975 mg tid for 2 weeks(started Jun 29) then decrease by 250 every week until back to baby aspirin
- PPI for gi protection
Constipation and abdominal distension
- OOB as much as possible
- per primary
HTN:
-above goal
-on ARB as OP
- as above
HLD:
-statin intolerant
CKD3A:
-seems to be stable here. Monitor closely.
Subjective:
Feels improved today, hoping to go home soon
Physical Exam
Vital Signs/Labs
Vital Signs
Temp Pulse Resp BP Pulse Ox
99.2 F 60 16 132/65 98
07/03/24 09:09 07/03/24 09:09 07/03/24 09:09 07/03/24 08:48 07/03/24 09:09
07/02/24 07/03/24 07/04/24
06:59 06:59 06:59
Actual Weight 209 lb 14.081 oz
07/03/24 05:48
07/03/24 05:48
PT 14.2 Sec (11.4-14.6) 06/28/24 14:13
INR 1.09 06/28/24 14:13
APTT 35.2 Sec (23.4-35.0) H 06/28/24 14:13
Magnesium 2.3 mg/dl (1.6-2.3) 07/01/24 04:26
Triglycerides 128 mg/dl (10-149) 06/29/24 05:17
LDL Cholesterol, Calc 116 mg/dl 06/29/24 05:17
VLDL Cholesterol, Calc 25 mg/dl (0-30) 06/29/24 05:17
HDL Cholesterol 60 mg/dl 06/29/24 05:17
TSH 2.90 uIU/ml (0.47-4.68) 07/01/24 04:26
Free T4 1.34 ng/dl (0.78-2.19) 07/01/24 04:26
Physical Exam
Constitutional: No acute distress
EENT: Anicteric
Cardiovascular: Rhythm & rate is regular
Respiratory: Respiratory effort normal and Lungs clear to auscul.
GI: Soft
Neuro/Psych: AO x 3
Data Reviewed
-
Date of Service: July 03, 2024
EKG: Tracing Personally Visualized and interpreted (sr)
Echo: Report Reviewed by me
Labs: Labs Reviewed by me
[2024-07-03 11:26] VITALS: BP 121/71
--- NOTE | 2024-07-03 13:34 | W.DCSUMMARY ---
Discharge Summary
Discharge Data
Date of Admission: 06/28/24
Date of Discharge: 07/03/24
-
Pending Results: No
Hospital Course
68-year-old male with past medical history of hyperlipidemia, CKD, hypertension came to the hospital with chest pain. Initially chest pain. To have concerning signs for possible aortic dissection. Patient was seen by CT surgery and vascular
surgery recommended to repeat CTA. Repeat CT scan was consistent with possible aortic ulcer. Patient was initially admitted to ICU for aggressive blood pressure management. Over time his blood pressure continued to improve with multiple blood
pressure medication titration and he was able to be weaned off IV drips. His echocardiogram was also consistent with possible acute pericarditis so patient was started on aspirin and colchicine. Over time his symptoms continue to improve and
vascular surgery recommended patient to follow-up with them outpatient with a repeat CT scan in 3 months. Once his blood pressure continues to improve and his chest pain resolved, he was then discharged home with instructions to follow-up closely
with PCP, vascular surgery, cardiology outpatient. He was given instructions for aspirin taper on discharge.
Discharge Plan
-
Patient Disposition: Home (Routine Discharge)
Discharge Diagnosis/Procedures: small penetrating aortic ulcer
Acute pericarditis
Constipation
Hypertension
Diet: As tolerated
Activity: As tolerated
Driving Restrictions: As prior to admission
Bathing Restrictions: None
Others Tests: please obtain your repeat CAT scan the week of 10/01/2024-10/05/2024 prior to your appointment with Dr. Guidry, you can call central scheduling at [phone]
Activity Restrictions/Additional Instructions:
975 mg tid until 07/13; 07/14 then decrease by 243 mg every week (3 x 81mg tab) until back to baby aspirin
Referrals:
Kay Reynolds NP [Specified Professional Personl] - (Patient scheduled catalina Reynolds on 07/20/2024 at 9:00 AM. )
Sukhjinder Cohen Jr., DO [Family Provider] - in less than 1 week
Vito Adams MD [Active] - in one to two weeks
Richmond Guidry MD [Active] - 10/09/24 1:30 pm
Prescriptions:
New
polyethylene glycol 3350 [HealthyLax] 17 gram Powder In Packet
17 g PO DAILYPRN PRN (Reason: constipation) Qty: 30 0RF
colchicine 0.6 mg Tablet
0.6 mg PO BID Qty: 60 0RF
acetaminophen 325 mg Tablet
650 mg PO Q4HPRN PRN (Reason: mild pain/SCHMITZ/temp> 100.4F) Qty: 0 0RF
metoprolol succinate 50 mg Tablet Extended Release 24 Hr
75 mg PO BID Qty: 60 0RF
sennosides-docusate sodium 8.6-50 mg Tablet
1 tab PO BIDPRN PRN (Reason: constipation) Qty: 60 0RF
valsartan 80 mg Tablet
160 mg PO BID 30 Days Qty: 120 0RF
nifedipine 30 mg Tablet Extended Release
30 mg PO DAILY Qty: 30 0RF
pantoprazole 40 mg Tablet,Delayed Release (Dr/Ec)
40 mg PO DAILY Qty: 30 0RF
aspirin 325 mg Tablet
975 mg PO TID Qty: 60 0RF
Rx Instructions:
975 mg tiduntil 07/13;07/14thendecrease by 243mgevery week (3 x 81mg tab) until back to baby aspirin
Continued
omega 8-alc-sus-fish oil [Fish Oil] 1,000 mg (120 mg-180 mg) Capsule
2 cap PO DAILY
Centrum Silver Men [id number] mcg Tablet
1 tab PO DAILY
Held
aspirin 81 mg Tablet,Delayed Release (Dr/Ec)
81 mg PO DAILY
Hold Instructions: Restart when done with aspirin taper
Discontinued
valsartan 80 MG tablet
80 mg PO DAILY
Discharge Orders:
Discharge Patient (As Directed); Ordered 07/03/24
Ordered By: Ronald Mckinley
Care Plan Goals
Care Plan Goals:
Problem: Readiness for enhanced knowledge related to diagnosis and treatment plan
Goal: Understand your diagnosis and treatment plan needs, including medications if applicable.
Instructions: Know your diagnosis, underlying causes and treatment plan options, including medications if applicable. Consult with your health care team to learn about your diagnosis and treatment plan, including medications if applicable.
Discharge Date and Time
Discharge Date/Time: 07/03/24 14:43
Print Language: HUNGARIAN
--- NOTE | 2024-07-03 13:34 | W.PN.HOSP.TC ---
Today's Communication/Plan
-
Monitor vital signs and see plan
Discussed with cardiology, discharge today
Continue with current medications
Aspirin taper, colchicine
Time of discharge 38 minutes
Assessment / Plan
Assessment / Plan
General: No Apparent Distress and Comfortable
HEENT: Negative Oxygen
Respiratory: Clear to Auscultation
Cardiac: Regular Rhythm and S1/S2; Negative Murmur or Rub
GI: Soft, Nontender and Nondistended
Musculoskeletal: No Edema
Neuro: Awake, Alert, Oriented, No Motor Deficits and Nonfocal/Grossly Intact
Psych: Calm
Acute pericarditis
-TTE/CT chest images reviewed and no pericardial effusion
-Troponin normal
-EKG reviewed and diffuse ST segment changes. A previous EKG from 21 stress test also showing some ST segment elevation but not as significant. Heart orientation on CT chest somewhat more horizontal and causing baseline changes on EKG ?
-Currently patient on aspirin 975 mg 3 times daily/colchicine 0.6 mg twice daily/PPI. Continue 975 mg 3 times daily for 2 weeks until 07/13. Starting 07/14 decreased breath to 43 mg (3 x 81 mg tab) every week until back to baby aspirin
-Chest pain is better from the current regimen, continue monitoring
Blood pressure has not been improving, discussed with cardiology and will discharge patient home today
Aortic ulcer
-CT a images reviewed located at arch just distal to left subclavian artery origin
-Vascular surgery evaluated and recommended to be treated as type B dissection
-Patient was on anti-impulse therapy with esmolol and Cardene for blood pressure control
-Repeat CT chest showing stable findings yesterday and vascular surgery has cleared patient to be discharged from their perspective
-Patient will require to follow-up in vascular surgery office in 3 months
-Patient have been started on increased dose of valsartan and metoprolol. Also now getting nifedipine
Weaned off esmolol
Patient will follow-up with vascular surgery for repeat CT scan in 3 months
Hypertensive emergency - resolved
-on esmolol/Cardene drip. now weaned off
Hyponatremia
Monitor
TME - mild
resolved
-Reported history of alcohol use, no other signs to support withdrawal. Continue to monitor. Empiric IV thiamine ordered
Constipation
Continue with laxatives, now agreeable for enema
Abdominal x-ray with fecal burden
-Dulcolax suppository
HLD
CKD Stage IIIA
DVT prophylaxis -SCD
CODE status -full code
Care plan discussed with RN/family
Anticipated Discharge: Today
Subjective/Interval History
-
Date of Service: July 03, 2024
Denies pain
Objective Data
-
Labs:
Laboratory Results
07/03/24
05:48
WBC 7.4
Hgb 10.7 L
Hct 30.6 L
Plt Count 241
Sodium 135
Potassium 3.9
Chloride 109 H
Carbon Dioxide 22
BUN 14
Creatinine 1.2
Glucose 84
Calcium 8.6
Vital Signs:
Vital Signs
Temp Pulse Resp BP Pulse Ox
98.3 F 60 16 121/71 98
07/03/24 11:24 07/03/24 11:26 07/03/24 11:24 07/03/24 11:26 07/03/24 11:24
I&O
07/02/24 07/03/24 07/04/24
06:59 06:59 06:59
Intake Total 3764.5 / 3883.5 1290.4 / 1290.4
Output Total 2500 / 2500 220 / 220
Balance 1264.5 / 1383.5 1070.4 / 1070.4
--- NOTE | 2024-07-03 13:43 | CM ---
Reviewed chart. Mr. Roberts was transferred to IVU. Met with and Mrs. Roberts to review discharge plans. He states he is feeling better and maybe able to go home soon. He states prior to admission he resides with his spouse in a one story
home without any steps to enter. He states prior to admission he was independent with ambulation and adls. He states he does not have any DME in the home. He states he has a prescription plan and uses [facility]. Medical work-up in progress.
The discharge plan is to return home with his spouse when medically stable.
--- NOTE | 2024-07-03 14:42 | PTCARENOTE ---
All D/C info reviewed with pt and spouse, all questions answered. Pt D/C'd home with spouse.
== END 2024-07-03 14:43 | disposition home or self-care (01) | DRG 314 ==
LOC: IVU 13:00
PROVIDERS: Hospitalist; Internal Medicine Critical Care Medicine; Nurse Practitioner; Physician Assistant; Registered Nurse; ADMITTING PHYSICIAN Internal Medicine; CONSULT PHYSICIAN Internal Medicine Cardiovascular Disease; CONSULT PHYSICIAN Surgery Vascular Surgery; CONSULT PHYSICIAN Thoracic Surgery (Cardiothoracic Vascular Surgery); EMERGENCY PHYSICIAN Emergency Medicine; FAMILY PHYSICIAN Family Medicine; OTHER PHYSICIAN Nurse Practitioner
DX: I30.9 Acute pericarditis, unspecified (principal); G92.8 Other toxic encephalopathy; I71.00 Dissection of unspecified site of aorta; I16.1 Hypertensive emergency; E87.1 Hypo-osmolality and hyponatremia; N18.31 Chronic kidney disease, stage 3a; I12.9 Hypertensive chronic kidney disease with stage 1 through stage 4 chronic kidney disease, or unspecified chronic kidney disease; I25.10 Atherosclerotic heart disease of native coronary artery without angina pectoris
CPT/HCPCS: 71045; 71275; 74018; 74174; 80048; 80053; 80061; 81003; 82607; 82746; 83690; 83735; 84100; 84439; 84443; 84484; 85025; 85027; 85610; 85652; 85730; 86850; 86900; 86901; 93005; 93306; 96361; 96374; 96375; 99285; Q9967

== ENCOUNTER → 2024-07-20 11:18 | Outpatient (REF) | payer MEDICARE, OTHER, SELFPAY ==
[2024-07-20 12:01] LABS: % Basophils 0.7 % (0-2); % Eosinophils 2.5 % (0-6); % Immature Granulocytes 0.2 % (0-0.5); % Lymphocytes 17.6 % (20.5-51.1); % Monocytes 7.5 % (1.7-9.3); % Neutrophils 71.5 % (42.2-75.2); Absolute Basophils 0.1 10^3/uL (0-0.2); Absolute Eosinophils 0.2 10^3/uL (0-0.7); Absolute Lymphocytes 1.5 10^3/uL (1.2-3.4); Absolute Monocytes 0.6 10^3/uL (0.1-0.6); Hematocrit 39.2 % (39.0-52.0); Hemoglobin 13.6 g/dL (13.0-18.0); Mean Corp Hgb Conc. 34.7 g/dL (33.0-37.0); Mean Corpuscular Hgb 30.6 pg (27.0-31.0); Mean Corpuscular Volume 88.1 fL (80.0-94.0); Mean Platelet Volume 10.9 fL (7.4-10.4); Nucleated Red Blood Cells % 0 % (-); Platelet Count 302 10^3/uL (130-400); Red Blood Cell Count 4.45 10^6/uL (4.70-6.10); Red Cell Dist. Width 13.7 % (11.5-14.5); White Blood Cell Count 8.4 10^3/uL (4.8-10.8)
[2024-07-20 12:38] LABS: Blood Urea Nitrogen 30 mg/dl (9-20); Carbon Dioxide 23 mmol/L (22-30); Chloride 103 mmol/L (98-107); Glucose 90 mg/dl (70-99); Potassium 5.2 mmol/L (3.5-5.1); Sodium 138 mmol/L (135-145); eGFR 46.64
== END ==
LOC: REG 11:18
PROVIDERS: ATTENDING PHYSICIAN Nurse Practitioner; FAMILY PHYSICIAN Family Medicine
DX: I10 Essential (primary) hypertension (principal); I30.9 Acute pericarditis, unspecified; N18.31 Chronic kidney disease, stage 3a; I25.10 Atherosclerotic heart disease of native coronary artery without angina pectoris; Z86.2 Personal history of diseases of the blood and blood-forming organs and certain disorders involving the immune mechanism
CPT/HCPCS: 36415; 80048; 85025

== ENCOUNTER → 2024-08-07 11:08 | Outpatient (REF) | payer MEDICARE, OTHER, SELFPAY ==
[2024-08-07 12:48] LABS: Blood Urea Nitrogen 19 mg/dl (9-20); Calcium 9.4 mg/dl (8.4-10.2); Carbon Dioxide 25 mmol/L (22-30); Chloride 98 mmol/L (98-107); Glucose 92 mg/dl (70-99); Sodium 136 mmol/L (135-145); eGFR 59.84
== END ==
LOC: REG 11:08
PROVIDERS: ATTENDING PHYSICIAN Nurse Practitioner; FAMILY PHYSICIAN Family Medicine
DX: I10 Essential (primary) hypertension (principal)
CPT/HCPCS: 36415; 80048

== ENCOUNTER → 2024-09-29 07:28 | Outpatient (REF) | payer MEDICARE, OTHER, SELFPAY ==
[2024-09-29 08:30] LABS: HDL Cholesterol 52 mg/dl; LDL Cholesterol, Calculated 112 mg/dl; Total Cholesterol 200 mg/dl (50-199); Triglyceride 180 mg/dl (10-149); Very Low Density Lipoprotein 36 mg/dl (0-30)
== END ==
LOC: REG 07:28
PROVIDERS: ATTENDING PHYSICIAN Nurse Practitioner Adult Health; FAMILY PHYSICIAN Family Medicine
DX: E78.5 Hyperlipidemia, unspecified (principal)
CPT/HCPCS: 36415; 80061